=== PATIENT | male | born 1980 | race Hispanic/Latino ===

== ENCOUNTER 2018-08-21 17:54 | Inpatient (IN) | payer OTHER ==
[2018-08-21] MEDS ORDERED: NA CHLORIDE 0.9% 1,000 ML ONE (19:38)
[2018-08-21 19:44] LABS: Absolute Monocytes 1.5 K/uL (0.1-1.3); Absolute Neutrophil 13.6 K/uL (1.8-8.0); Basophils % 0.4 % (0-1.3); Eosinophils % 1.3 % (0-4.4); Hematocrit 42.4 % (39.6-49.0); Lymphocytes % 11.6 % (15.3-44.8); MPV 6.6 fL (7.6-11.3); Monocytes % 8.9 % (3.3-12.3); RBC Red Blood Cell Count 4.74 M/uL (4.33-5.43)
[2018-08-21 19:53] LABS: Protime INR 1.08
[2018-08-21 20:02] LABS: Albumin 3.2 g/dL (3.4-5.0); Bilirubin Direct 0.1 mg/dL (0-0.2); Bilirubin Total 0.4 mg/dL (0.2-1.0); Potassium 3.5 mmol/L (3.5-5.1); Protein, Total 7.8 g/dL (6.4-8.2)
--- NOTE | 2018-08-21 20:19 | ER ---
Nurse's Notes [facility] Name: Robin Richardson Jr Age: 38 yrs Sex: Male : 1980 Arrival Date: 08/21/2018 Time: 17:57 Bed 30 Private MD: Armin Johnson H Diagnosis: Abscess of anal and rectal regions Presentation: 08/21 18:37 Presenting complaint: Patient states: Hx of perianal abcess, began having pain in L ph buttocks on Tuesday, reports taking penicillin that he had left over from dental work, states, " It feels like it's gone down some but it still hurts." Denies N/V/D or drainage. Transition of care: patient was not received from another setting of care. Onset of symptoms was August 21, 2018. Risk Assessment: Do you want to hurt yourself or someone else? Patient reports no desire to harm self or others. Care prior to arrival: None. 18:37 Method Of Arrival: Ambulatory 18:37 Acuity: MYRNA 3 ph 22:10 Initial Sepsis Screen: Does the patient meet any 2 criteria? No. Patient's initial tl3 sepsis screen is negative. Does the patient have a suspected source of infection? No. Patient's initial sepsis screen is negative. Historical: - Allergies: 18:41 No Known Allergies; ph - PMHx: 18:41 None; ph - Immunization history:: Adult Immunizations up to date. - Social history:: Smoking status: unknown. - Ebola Screening: : No symptoms or risks identified at this time. Screenin:44 Abuse screen: Denies threats or abuse. Nutritional screening: No deficits noted. tl3 Tuberculosis screening: No symptoms or risk factors identified. Fall Risk None identified. Assessment: 18:44 General: Appears uncomfortable, well groomed, well developed, well nourished, Behavior tl3 is calm, cooperative, appropriate for age. Pain: Complains of pain in buttocks. Neuro: Level of Consciousness is awake, alert, obeys commands, Oriented to person, place, time, situation, Appropriate for age. Cardiovascular: Patient's skin is warm and dry. Respiratory: Airway is patent Respiratory effort is even, unlabored, Respiratory pattern is regular, symmetrical. GI: No signs and/or symptoms were reported involving the gastrointestinal system. : No signs and/or symptoms were reported regarding the genitourinary system. EENT: No signs and/or symptoms were reported regarding the EENT system. Derm: Wound noted buttocks Abscess located on buttocks. Derm: Abscess flared up on Tuesday. Musculoskeletal: 20:09 Reassessment: No changes from previously documented assessment. Patient and/or family tl3 updated on plan of care and expected duration. Pain level reassessed. Patient is alert, oriented x 3, equal unlabored respirations, skin warm/dry/pink. 20:32 Reassessment: Dr Rahman at bedside for admission assessment. tl3 21:21 Reassessment: Patient appears in no apparent distress at this time. No changes from tl3 previously documented assessment. Patient and/or family updated on plan of care and expected duration. Pain level reassessed. Patient is alert, oriented x 3, equal unlabored respirations, skin warm/dry/pink. awaiting room assignment. 22:04 Reassessment: pt assigned room 229, report called to GA Ford. tl3 Vital Signs: 18:40 BP 125 / 87; Pulse 123; Resp 22; Temp 100.5; Pulse Ox 98% on R/A; Weight 163.29 kg; ph Height 5 ft. 8 in. (172.72 cm); Pain 6/10; 20:09 BP 124 / 63; Pulse 83; Resp 18; Pulse Ox 98% on R/A; tl3 21:21 BP 114 / 66; Pulse 100; Resp 18; Pulse Ox 95% on R/A; tl3 22:00 BP 101 / 51 RA; Pulse 101; Resp 21 S; Pulse Ox 97% on R/A; rv 18:40 Body Mass Index 54.74 (163.29 kg, 172.72 cm) ph ED Course: 17:57 Patient arrived in ED. as 17:57 Armin Johnson DO is Private Physician. as 18:40 Triage completed. ph 18:41 Arm band placed on. ph 18:42 Lincoln Harper PA is PHCP. cp 18:42 Mitchell Chun MD is Attending Physician. cp 18:43 Rut Landry, [place] is Primary Nurse. tl3 18:44 Patient has correct armband on for positive identification. Placed in gown. Bed in low tl3 position. Call light in reach. Side rails up X 1. Pulse ox on. NIBP on. Warm blanket given. 18:44 No provider procedures requiring assistance completed. tl3 19:30 Inserted saline lock: 20 gauge in left antecubital area, using aseptic technique. Blood rv collected. 20:18 Gavin Rahman MD is Hospitalizing Provider. cp 20:42 Patient moved to UT. vm2 22:04 Patient admitted, IV remains in place. tl3 Administered Medications: 19:30 Drug: NS 0.9% 1000 ml Route: IV; Rate: 1 bolus; Site: left antecubital; rv 20:39 Follow up: IV Status: Completed infusion; IV Intake: 1000ml tl3 20:40 Drug: Tylenol 1000 mg Route: PO; tl3 21:54 Follow up: Response: No adverse reaction tl3 20:45 Drug: Zosyn 3.375 grams Route: IVPB; Infused Over: 60 mins; Site: left forearm; tl3 Delivery: Primary tubing; 21:55 Follow up: IV Status: Completed infusion; IV Intake: 100ml tl3 22:07 Not Given (sent up with pt to floor): vancoMYCIN 1 grams IVPB once over 2 hrs tl3 Intake: 20:39 IV: 1000ml; Total: 1000ml. tl3 21:55 IV: 100ml; Total: 1100ml. tl3 Outcome: 20:19 Decision to Hospitalize by Provider. cp 22:04 Admitted to Med/surg accompanied by tech, via wheelchair, on monitor, with chart, Other tl3 Vancomycin sent to floor for admistration Report called to GA Ford 22:04 Condition: stable 22:04 Instructed on the need for admit. 22:27 Patient left the ED. tl3 Signatures: Blanca Chan Patricia, RN RN ph Lincoln Harper, FESTUS PA cp Margarita Mac 2 Rut Landry RN RN tl3 Dax Silva RN RN rv Corrections: (The following items were deleted from the chart) 20:32 20:09 BP 133 / 88; Pulse 87bpm; Resp 18bpm; Pulse Ox 100% RA; tl3 tl3
--- NOTE | 2018-08-21 20:20 | EDPHYS ---
Physician Documentation [facility] Name: Robin Richardson Jr Age: 38 yrs Sex: Male : 1980 Arrival Date: 08/21/2018 Time: 17:57 Bed 30 Private MD: Armin Johnson H ED Physician Mitchell Chun HPI: 08/21 19:20 This 38 yrs old Male presents to ER via Ambulatory with complaints of Abscess. cp 19:20 The patient presents with an abscess of the rectum. Onset: The symptoms/episode cp began/occurred 2 day(s) ago. 19:20 Associated signs and symptoms: Pertinent positives: fever, swelling, Pertinent cp negatives: discharge, drainage, vomiting. Modifying factors: the symptoms are aggravated by walking, pressure. Historical: - Allergies: 18:41 No Known Allergies; ph - PMHx: 18:41 None; ph - Immunization history:: Adult Immunizations up to date. - Social history:: Smoking status: unknown. - Ebola Screening: : No symptoms or risks identified at this time. ROS: 19:25 Constitutional: Positive for fever, Negative for body aches, chills, poor PO intake. cp 19:25 Eyes: Negative for injury, pain, redness, and discharge. cp 19:25 Cardiovascular: Negative for chest pain. cp 19:25 Respiratory: Negative for cough, shortness of breath, wheezing. cp 19:25 Abdomen/GI: Positive for rectal pain, Negative for abdominal pain, nausea, vomiting, and diarrhea, black/tarry stool, rectal bleeding. 19:25 : Negative for urinary symptoms, testicular pain 19:25 Skin: Negative for rash. 19:25 Neuro: Negative for altered mental status, headache, weakness. 19:25 All other systems are negative. Exam: 19:35 Constitutional: The patient appears in no acute distress, alert, awake, cp non-diaphoretic, non-toxic, well developed, well nourished, obese. 19:35 Head/Face: Normocephalic, atraumatic. cp 19:35 Eyes: Periorbital structures: appear normal, Conjunctiva: normal, no exudate, no injection, Sclera: no appreciated abnormality, Lids and lashes: appear normal, bilaterally. 19:35 ENT: External ear(s): are unremarkable, Nose: is normal, Mouth: Lips: moist, Oral mucosa: moist, Posterior pharynx: Airway: no evidence of obstruction, patent. 19:35 Chest/axilla: Inspection: normal, Palpation: is normal, no crepitus, no tenderness. 19:35 Cardiovascular: Rate: tachycardic, Rhythm: regular. 19:35 Respiratory: the patient does not display signs of respiratory distress, Respirations: normal, no use of accessory muscles, no retractions, no splinting, no tachypnea, labored breathing, is not present, Breath sounds: are clear throughout, no decreased breath sounds, no stridor, no wheezing. 19:35 Abdomen/GI: Inspection: abdomen appears normal, Palpation: abdomen is soft and non-tender, in all quadrants. 19:35 Back: pain, is absent, ROM is normal. 19:35 : Rectal exam: moderate pain noted rectal face at approximate 7 o'clock position with induration and swelling. Vital Signs: 18:40 BP 125 / 87; Pulse 123; Resp 22; Temp 100.5; Pulse Ox 98% on R/A; Weight 163.29 kg; ph Height 5 ft. 8 in. (172.72 cm); Pain 6/10; 20:09 BP 124 / 63; Pulse 83; Resp 18; Pulse Ox 98% on R/A; tl3 21:21 BP 114 / 66; Pulse 100; Resp 18; Pulse Ox 95% on R/A; tl3 22:00 BP 101 / 51 RA; Pulse 101; Resp 21 S; Pulse Ox 97% on R/A; rv 18:40 Body Mass Index 54.74 (163.29 kg, 172.72 cm) ph MDM: 18:42 Patient medically screened. cp 20:05 Data reviewed: vital signs, nurses notes, lab test result(s). cp 20:05 Counseling: I had a detailed discussion with the patient and/or guardian regarding: the cp historical points, exam findings, and any diagnostic results supporting the discharge/admit diagnosis, lab results, the need for further work-up and treatment in the hospital. 20:05 Physician consultation: Gavin Rahman MD was contacted at 20:00, regarding admission, cp to the medical/surgical unit. patient's condition. 08/21 19:14 Order name: Basic Metabolic Panel; Complete Time: 20:03 cp 03/04 20:03 Interpretation: Normal except: GLUC 130; GFR 89. cp 03/04 19:14 Order name: CBC with Diff; Complete Time: 20:03 cp 03/04 20:04 Interpretation: Normal except: WBC 17.5; MPV 6.6; YESESNIA% 77.8; LYM% 11.6; NEUT A 13.6; cp MNA 1.5. 03/ 19:14 Order name: Creatinine for Radiology; Complete Time: 20:03 cp 03/04 19:14 Order name: Hepatic Function; Complete Time: 20:03 cp 03/04 20:04 Interpretation: Normal except: AST 9; ALB 3.2; GLOB 4.6; A/G 0.7. cp 03/04 19:14 Order name: PT-INR; Complete Time: 20:03 cp /04 19:14 Order name: Ptt, Activated; Complete Time: 20:03 cp /04 19:14 Order name: IV Saline Lock; Complete Time: 19:43 cp / 19:14 Order name: Labs collected and sent; Complete Time: 19:43 cp /04 20:23 Order name: Blood Culture Adult (2) rv 04 21:06 Order name: CT; Complete Time: 21:10 EDMS Administered Medications: 19:30 Drug: NS 0.9% 1000 ml Route: IV; Rate: 1 bolus; Site: left antecubital; rv 20:39 Follow up: IV Status: Completed infusion; IV Intake: 1000ml tl3 20:40 Drug: Tylenol 1000 mg Route: PO; tl3 21:54 Follow up: Response: No adverse reaction tl3 20:45 Drug: Zosyn 3.375 grams Route: IVPB; Infused Over: 60 mins; Site: left forearm; tl3 Delivery: Primary tubing; 21:55 Follow up: IV Status: Completed infusion; IV Intake: 100ml tl3 22:07 Not Given (sent up with pt to floor): vancoMYCIN 1 grams IVPB once over 2 hrs tl3 Disposition: 08/21/18 20:19 Hospitalization ordered by Gavin Rahman for Inpatient Admission. Preliminary diagnosis is Abscess of anal and rectal regions. - Bed requested for Telemetry/MedSurg (Inpatient). - Status is Inpatient Admission. tl3 - Condition is Stable. - Problem is new. - Symptoms have improved. UTI on Admission? No Addendum: 08/26/2018 03:03 Co-signature as Attending Physician, Mitchell Chun MD. g s Signatures: Dispatcher [employer] EDRI Luana Aguero ms, Patricia, RN RN ph Meredith, Lincoln, PA PA cp Mitchell Chun MD MD Rut Landry, [place] RN tl3 Dax Silva RN RN rv Corrections: (The following items were deleted from the chart) 08/21 20:04 20:03 Normal except: WBC 17.5; MPV 6.6; YESSENIA% 77.8; LYM% 11.6; NEUT A 13.6. cp cp 21:22 20:19 Hospitalization Ordered by Gavin Rahman MD for Inpatient Admission. Preliminary ms diagnosis is Abscess of anal and rectal regions. Bed requested for Telemetry/MedSurg (Inpatient). Status is Inpatient Admission. Condition is Stable. Problem is new. Symptoms have improved. UTI on Admission? No. cp 22:27 21:22 08/21/2018 20:19 Hospitalization Ordered by Gavin Rahman MD for Inpatient tl3 Admission. Preliminary diagnosis is Abscess of anal and rectal regions. Bed requested for Telemetry/MedSurg (Inpatient). Status is Inpatient Admission. Condition is Stable. Problem is new. Symptoms have improved. UTI on Admission? No. ms
[2018-08-21] MEDS ORDERED: ACETAMINOPHEN 500 MG TAB ONE (20:37)
[2018-08-21] MEDS ORDERED: PIPER/TAZO/NS 3.375gm 3.375 GM/100 ML BAG ONE (20:38)
--- NOTE | 2018-08-21 20:42 | P.HP ---
Certification for Inpatient Patient admitted to: Observation With expected LOS: <2 Midnights Practitioner: I am a practitioner with admitting privileges, knowledge of patient current condition, hospital course, and medical plan of care. Services: Services provided to patient in accordance with Admission requirements found in Title 42 Section 412.3 of the Code of Federal Regulations Patient History Date of Service: 08/21/18 Reason for admission: perirectal abscess History of Present Illness: Mr Richardson is a 38 years old male with history of obesity, previous episode of perirectal abscess 5 years ago, who start about 4 days ago with perianal area pain. He noticed an induration in this area. Since he had this problem in the past, he start taking penicillin tabs that had left from a recent dental procedure. He noticed that over the time, the induration reduced the size, but is dye tank tender. He denied blood, or pus coming out. He denied fever or chills, however in ER his temp was 100.5 F. Lab work shows WBC 17.5 K. Allergies No Known Allergies Allergy (Verified 04/26/14 11:36) Home Medications: Hydrocodone 7.5/APAP 325 [Grady 7.5/325 mg] 1 tab PO Q4HP PRN #20 tab 04/26/14 Smz./Tmp. [Bactrim Ds 800 MG/160 MG*] 1 tab PO BID #14 tab 04/26/14 - Past Medical/Surgical History Diabetic: No -: obesity -: perirectal abscess -: I&D perirectal abscess - Family History Family History: Reviewed- Non-Contributory - Family History mom -: Diabetes dad -: Heart disease, Diabetes - Social History Smoking Status: Former smoker Alcohol use: Yes CD- Drugs: No Caffeine use: Yes Place of Residence: Home Review of Systems 10-point ROS is otherwise unremarkable Physical Examination - Physical Exam General: Alert, In no apparent distress HEENT: Atraumatic, PERRLA, Mucous membr. moist/pink, EOMI, Sclerae nonicteric Neck: Supple, 2+ carotid pulse no bruit, No LAD, Without JVD or thyroid abnormality Respiratory: Clear to auscultation bilaterally, Normal air movement Cardiovascular: Regular rate/rhythm, Normal S1 S2 Gastrointestinal: Normal bowel sounds, No tenderness Musculoskeletal: No tenderness Integumentary: No rashes Neurological: Normal speech, Normal strength at 5/5 x4 extr, Normal tone, Normal affect Lymphatics: No axilla or inguinal lymphadenopathy Rectal: Induration (left lower perianal area.), Tenderness - Studies Laboratory Data (last 24 hrs) 08/21/18 19:30: PT 12.7 H, INR 1.08, APTT 32.3 08/21/18 19:30: Creatinine 0.97 08/21/18 19:30: WBC 17.5 H, Hgb 14.2, Hct 42.4, Plt Count 323 08/21/18 19:30: Sodium 140, Potassium 3.5, BUN 10, Creatinine 0.95, Glucose 130 H, Total Bilirubin 0.4, AST 9 L, ALT 21, Alkaline Phosphatase 75 Assessment and Plan - Problems (Diagnosis) (1) Obesity Current Visit: Yes Status: Acute Qualifiers: Obesity type: unspecified obesity type Obesity classification: unspecified obesity classification Serious obesity comorbidity presence: unspecified whether serious comorbidity present Qualified Code(s): E66.9 - Obesity, unspecified (2) Chelsie-rectal abscess Onset Date: 04/24/14 Current Visit: No Status: Acute (3) Rectal pain Onset Date: 04/24/14 Current Visit: No Status: Acute - Plan Will admit the patient due to a perirectal abscess. He is febrile and has leukocytosis. Will order CT pelvis to evaluate extention. Start empiric broad spectrum IV antibiotics, consult surgery team. - Advance Directives Does patient have a Living Will: No Does patient have a Durable POA for Healthcare: No - Code Status/Comfort Care Code Status Assessed: Yes Code Status: Full Code
--- NOTE | 2018-08-21 21:06 | RAD REPORT ---
EXAM DESCRIPTION: CT - Pelvis W/Cont - 08/21/2018 8:55 pm CLINICAL HISTORY: perirectal abscess Pain in the anal region. COMPARISON: No comparisons TECHNIQUE: All CT scans are performed using dose optimization technique as appropriate and may inclu de automated exposure control or mA/KV adjustment according to patient size. FINDINGS: A 4.6 x 3.4 cm left-sided perirectal abscess is identified. The skin and deeper tissues in the region appear mildly thickened and edematous. No evidence of communication of the abscess with the intrapelvic structures. No additional soft tissu e lesion. No pelvic free fluid or adenopathy. IMPRESSION: Left-sided perirectal abscess is present (4.6 x 3.5 cm).
[2018-08-21] MEDS ORDERED: ACETAMINOPHEN 500 MG TAB PO PRN (22:13)
[2018-08-21] MEDS ORDERED: ONDANSETRON 4 MG/2 ML VIAL IV PRN (22:13)
[2018-08-21] MEDS ORDERED: KETOROLAC 30 MG/ML INJ IV PRN (22:13)
[2018-08-21] MEDS ORDERED: NA CHLORIDE 0.9% 250 ML ONE (22:20)
[2018-08-21] MEDS ORDERED: VANCOMYCIN 1 GM/VIAL ONE (22:20)
[2018-08-21 22:25] VITALS: BMI 54.8
[2018-08-21] MEDS: NA CHLORIDE 0.9% 1,000 ML IV SCH (22:44)
[2018-08-21] MEDS ORDERED: VANCOMYCIN 1 GM in NA CHLORIDE 0.9% 500 ML IVPB ONE (23:00)
[2018-08-22] MEDS ORDERED: NA CHLORIDE 0.9% 500 ML ONE (01:29)
[2018-08-22] MEDS ORDERED: VANCOMYCIN 1 GM/VIAL ONE (01:29)
[2018-08-22] MEDS ORDERED: PIPER/TAZO/NS 3.375gm 3.375 GM/100 ML BAG IVPB SCH (03:00)
[2018-08-22] MEDS ORDERED: PIPER/TAZO/NS 3.375gm 3.375 GM/100 ML BAG ONE (03:41)
[2018-08-22] MEDS: PIPER/TAZO/NS 3.375gm 3.375 GM/100 ML BAG IVPB SCH ×2 (08:57→17:36)
[2018-08-22] MEDS: NA CHLORIDE 0.9% 1,000 ML IV SCH ×2 (08:58→17:36)
[2018-08-22] MEDS ORDERED: VANCOMYCIN 1.25 GM in NA CHLORIDE 0.9% 500 ML IVPB SCH (09:00)
[2018-08-22] MEDS ORDERED: VANCOMYCIN 2 GM in NA CHLORIDE 0.9% 500 ML IVPB SCH (10:00)
[2018-08-22] MEDS ORDERED: ONDANSETRON 4 MG/2 ML VIAL ONE ×2 (10:01→13:54)
[2018-08-22] MEDS ORDERED: PROPOFOL 200 MG/20 ML VIAL IV ONE ×2 (10:01→10:52)
[2018-08-22] MEDS ORDERED: LIDOCAINE 2% MPF 5 ML VIAL ONE (10:01)
[2018-08-22] MEDS ORDERED: FENTANYL CITR 100 MCG/2 ML ONE (10:01)
[2018-08-22] MEDS ORDERED: MIDAZOLAM HCL 2 MG/2 ML INJ ONE (10:01)
[2018-08-22] MEDS: BUPIVACAINE 0.5% PF 10 ML VIAL ONE ×2 (10:10→10:59)
--- NOTE | 2018-08-22 10:55 | CON ---
Date of Consultation: 08/22/2018 Diagnosis: Perirectal abscess. History Of Present Illness: This is a case of a 38-year-old patient, who comes to us with perirectal /perianal tenderness. About 4 days ago, it started in that area. He used to have perirectal abscess before in the past that required I and D about 5 years ago. He feels almost the same. The patient was admitted to the hospital with IV antibiotics, and then a surgical consult was obtained. He denie s any trauma, any dysuria, hematochezia, or melena. He denies any recent traveling out of the [facility]. He denies any family member sick at home. Review of Systems: Ten points otherwise unremarkable. Family History: Diabetes and heart disease. Medications: Hydrocodone and Bactrim. Allergies: NONE. Past Surgical History: I and D for perirectal abscess. Social History: He does not smoke. He does not drink alcohol. Physical Examination: General: The patient is awake and alert. He is morbidly obese. HEENT: Pupils are equal and reactive, anicteric. Neck: Supple. Chest: Clear. Heart: S1, S2. Abdomen: Soft and depressible. No guarding or rebound. Genitalia: No masses palpated in the perir ectal area and in the perineal region. Just anterior to the anus, the patient has an induration and tenderness with erythema present. The area of the scrotum does not seem to be involved at least in p hysical exam. Extremities: Good capillary refill. Laboratory Data: Blood work shows WBC count of 17.5, INR is 1.08. Glucose 130. CAT scan of the pel vis interpreted by Dr. Tomlinson, he has perirectal abscess. Assessment: This is a case of a 38-year-old patient with a perianal/perirectal tenderness diagnosed with perirectal abscess. Examination under anesthesia, anoscopy, rigid proctoscopy, incision and dra weathers of perianal abscess were fully explained to the patient, which include, but are not limited to infection, bleeding, damage to adjacent structures, anesthesia complication, anal stricture and incon tinence, bowel perforation, MT, and even . He also understands this may not relieve any symptom s. He might need more than one surgical intervention. He understands he will require wound care. H e was also advised the importance of losing weight. EPI/TUTU Voice ID: [id number] Report ID: [id number]
--- NOTE | 2018-08-22 11:29 | P.BOP ---
Preoperative diagnosis: perirectal abscess, morbid obesity Postoperative diagnosis: same Primary procedure: 1. EUA, 2. Anoscopy, 3. Rigid proctoscopy Secondary procedure: 4. incision and drainage of perirectal abscess Estimated blood loss: <10 Specimen: pus Findings: as above Anesthesia: General Complications: None Drain(s): Other (ana lilia 06/23") Transferred to: Recovery Room Condition: Good
[2018-08-22] MEDS: FENTANYL CITR 100 MCG/2 ML ONE ×2 (11:31→11:44)
[2018-08-22] MEDS: HYDROCODONE/APAP 7.5/325 MG TAB PO PRN (15:12)
--- NOTE | 2018-08-22 18:07 | PN ---
Date of Progress Note: 08/22/2018 Subjective: The patient seen and examined, chart reviewed and case discussed with RN. The patient o verall states that his pain was better. He stated that his abscess initially was golf ball size, how ever, has improved. Medications: List reviewed. Objective: Vital signs: Temperature 97.3, heart rate 87, blood pressure 138/76, respirations 20, O2 93% on room air. General: Awake, alert, oriented x3. Morbidly obese male. BMI 54.8. CV: S1, S2. Regular rate and rhythm. Peripheral pulses present. Respiratory: Moving air well bilaterally. No wheezing or stridor. Gastrointestinal: Abdomen is soft, nontender, nondistended. Positive bowel sounds. Extremities: No clubbing, cyanosis, or edema. Neuro: cranial nerves 2 through 12 intact grossly. No focal neurological deficit. SKIN: The patient has a perirectal abscess on the left with some induration and tenderness to palpat ion. No drainage. Laboratory Data: Pending CT scan of the pelvis shows left-sided perirectal abscess, 4 x 3 cm. Assessment: A 38-year-old male with: 1.Perirectal abscess, status post incision and drainage by Dr. Chan. Continue antibiotics. Dis continue vancomycin. Follow up on wound cultures. 2.Rectal pain secondary to above. 3.Morbid obesity. Body mass index 54.8. 4.Hyperglycemia without diagnosis of diabetes. We will check hemoglobin A1c to rule out diabetes. The patient is high risk. Plan: Continue antibiotics. Follow up on cultures. Likely discharge in the next 24-48 hours depend ing on clinical response. /TUTU Voice ID: [id number] Report ID: [id number]
[2018-08-22] MEDS: VANCOMYCIN 2 GM in NA CHLORIDE 0.9% 500 ML IVPB SCH (21:48)
--- NOTE | 2018-08-22 22:31 | OP ---
Date of Procedure: 08/22/2018 Surgeon: Remi Chan MD Preoperative Diagnoses: Perirectal abscess and morbid obesity. Postoperative Diagnoses: Perirectal abscess and morbid obesity. Procedure: Examination under anesthesia, anoscopy, rigid proctoscopy, incision and drainage of perir ectal abscess. Estimated Blood Loss: Less than 10 cc. Specimen: Pus. Findings: A perirectal abscess. Cultures were obtained. Complications: None. Packing: Nu-Gauze quarter of an inch. Indications: This is the case of a 38-year-old patient, morbidly obese, with a perirectal abscess di agnosed on pelvic CT with tenderness. The patient fully explained the benefits, alternatives, and ri sks of EUA, anoscopy, proctoscopy, incision and drainage of perirectal abscess, which include, but no t limited to infection, bleeding, damage to adjacent structures, anesthesia complication, anal strict ure and incontinence, bowel perforation, OR, and even . He also understands this may not reliev e the symptoms. He might need more than one surgical intervention. He understood and signed a conse nt. The patient understands he will require to do wound care. Description Of Procedure: The patient was brought to the operating room and placed in supine positio n. Anesthesia was done without complication. Then, the patient was placed in lithotomy position wit h proper protection. A time-out was called. Rectal examination was done. We identified the bulging area on the left perirectal region near the anus. Rigid proctoscopy was done all the way about 15 c m. A large amount of stools present, so physical exam was difficult and limited that we did not see any obvious mass in the rectum connecting to this abscess. We did not see any obvious fistula neithe r. Although once again, may be obscured by the amount of stool present. After that, an 18-gauge nee dle was placed to identify the area. The pus was aspirated. Position confirmed. The culture was ob tained. An incision was made to cover the skin near the anal verge. The surrounding structures were dissected carefully with a hemostat. The cavity was deep. It was encountered. The pus was then ca me out under pressure, but we were able to introducer finger to that area and make sure there is no o ther loculations present. The abscess was irrigated. Hemostasis obtained and the area was packed wi th iodoform quarter of an inch. The patient tolerated the procedure well. The dressings placed over the area. The patient was sent to recovery in stable condition. FORTINO Voice ID: [id number] Report ID: [id number]
[2018-08-23] MEDS: PIPER/TAZO/NS 3.375gm 3.375 GM/100 ML BAG IVPB SCH ×2 (00:57→08:21)
[2018-08-23] MEDS: HYDROCODONE/APAP 7.5/325 MG TAB PO PRN ×2 (03:15→16:40)
[2018-08-23] MEDS: NA CHLORIDE 0.9% 1,000 ML IV SCH ×3 (04:13→23:57)
[2018-08-23] MEDS: VANCOMYCIN 2 GM in NA CHLORIDE 0.9% 500 ML IVPB SCH ×2 (08:31→21:00)
[2018-08-23 12:01] LABS: Absolute Lymphocytes (CBC) 1.6 K/uL (0.7-4.9); Absolute Monocytes 1.4 K/uL (0.1-1.3); Absolute Neutrophil 8.9 K/uL (1.8-8.0); Basophils % 0.5 % (0-1.3); Eosinophils % 2.3 % (0-4.4); Hematocrit 41.1 % (39.6-49.0); Lymphocytes % 13.3 % (15.3-44.8); MPV 6.6 fL (7.6-11.3); Monocytes % 11.7 % (3.3-12.3); RBC Red Blood Cell Count 4.58 M/uL (4.33-5.43)
[2018-08-23 12:47] LABS: Uric Acid 7.8 mg/dL (3.5-7.2)
[2018-08-23 14:07] LABS: Urine Appearance CLEAR; Urine Bilirubin NEGATIVE (NEG); Urine Blood NEGATIVE (NEG); Urine Color YELLOW; Urine Glucose NEGATIVE (NEG); Urine Microscopic Reflex NO UMIC; Urine Protein NEGATIVE (NEG); Urine Specific Gravity <=1.005 (1.005-1.030); Urine pH 5.5 (5.0-7.0)
[2018-08-23 14:32] LABS: Barbiturates NEGATIVE (NEGATIVE); Benzodiazepines NEGATIVE (NEGATIVE); Cocaine NEGATIVE (NEGATIVE); METHAMPHETAM NEGATIVE (NEGATIVE); Methadone NEGATIVE (NEGATIVE); Opiates NEGATIVE (NEGATIVE); Phencyclidine NEGATIVE (NEGATIVE); THC Cannibis NEGATIVE (NEGATIVE)
[2018-08-23] MEDS ORDERED: CEFEPIME 2 GM in NA CHLORIDE 0.9% 100 ML IV SCH (15:00)
--- NOTE | 2018-08-23 16:03 | RAD REPORT ---
EXAM DESCRIPTION: US - Renal Ultrasound-Complete - 08/23/2018 3:26 pm CLINICAL HISTORY: . Abnormal renal function/abdominal pain COMPARISON: None. FINDINGS: Examination is somewhat limited secondary to body habitus The right kidney measures 11 cm with a normal echotexture. The left kidney measures 11 cm with a normal echotexture. Hydronephrosis is not seen. No gross abnormality of bladder noted IMPRESSION: Unremarkable renal ultrasound.
--- NOTE | 2018-08-23 17:35 | PN ---
Date of Progress Note: 08/23/2018 Subjective: The patient is seen and examined. Chart reviewed and case discussed with RN and Dr. Nadira mata as well as Dr. Flores. The patient states that his pain is significantly better. is espino pposed to be coming in tonight to observe and have teaching for wound care. The patient is unable to do wound care himself due to the location of the abscess and wound, may need to be set up with [facility], not homebound unfortunately and does not qualify for home health. Medications: List reviewed. Physical Examination: Vital Signs: Temperature 97.5, heart rate 87, blood pressure 119/78, respirations 20, O2 saturation 96% on room air. General: Awake, alert, oriented x3. Morbidly obese, ill-appearing male. CV: S1 and S2. Regular rate and rhythm. Peripheral pulses present. Respiratory: Moving air well bilaterally. No wheezing or stridor. Gastrointestinal: Abdomen is soft, nontender, nondistended. Positive bowel sounds. Skin: Perirectal abscess with packing and gauze. No signs of drainage. Extremities: No clubbing, cyanosis, or edema. Neurologic: Nonfocal. Laboratory Data: WBC 12.3, H and H 13.6 and 41.1, platelets 334. INR 1.08, creatinine 2.04, uric ac id 7.8. CK is 33. Blood cultures are pending. Wound culture preliminary results showing 3+ gram-ne gative rods. Blood cultures are showing gram-positive cocci in clusters. Assessment And Plan: A 38-year-old male with: 1.Perirectal abscess status post incision and drainage by Dr. Chan. Continue IV antibiotics. W e will discontinue Zosyn and switch to cefepime due to elevated kidney function. The patient's blood cultures are now showing gram-positive cocci. Therefore, we will reintroduce vancomycin. Wound cul tures are showing gram-negative rods. 2.Prediabetes. Hemoglobin A1c is 6%. The patient has been counseled. 3.Acute kidney injury, likely due to contrast-induced nephropathy. Creatinine is elevated at 2.04. Baseline was normal. We will continue to monitor. Avoid NSAIDs. Appreciate Nephrology input. Dr. Flores was consulted earlier today. 4.Morbid obesity, BMI 54.8. Plan: We will have social work job titles set up wound care [facility]. We will have [place] have wound care teaching. Follow up on culture results. Likely discharge in the next 24-48 hour s depending on clinical response. /TUTU Voice ID: [id number] Report ID: [id number]
--- NOTE | 2018-08-23 17:44 | PN ---
Date of Progress Note: 08/23/2018 Subjective: Status post perirectal abscess drainage. Patient is doing well. No nausea. No vomitin g. Denies shortness of breath or chest pain. Objective: Chest: Clear. Abdomen: Soft and depressible. Back area: Intact surgical site. Laboratory Studies: WBC count came down from 17 to 12.3. Culture still pending. Assessment: Perirectal abscess status post incision and drainage. Plan: The patient will continue on antibiotics at least for next 7 days. Packing has to be done. H e cannot do it, it is not possible. I talked to his mother and she does not think he is able to do s o. So, I am recommending to really use home health agencies of his predilection. He says his m ight do so, but at this moment, it is hard to just get that may need some supervised skill s. My recommendation is to really accept a home health agency. feels comfortable and his knows how to do so, then he can switch and somehow tell that to the home health agencies. From the surgical standpoint, we are going to see him in 1 week in my office. EPI/TUTU Voice ID: [id number] Report ID: [id number]
--- NOTE | 2018-08-24 03:57 | CON ---
Date of Consultation: 08/23/2018 Reason For Consultation: Elevated BUN and creatinine. History Of Present Illness: This is a pleasant 38-year-old gentleman with no significant medical his tory except previous buttock abscess, status post I and D, treated, recovered. The patient came with buttock pain, started few days ago, visited the ER, treated with penicillin. Then, his symptoms did not improve. For that reason, reported to the hospital again, found to have abscess with leukocytos is. For that reason, the patient was admitted. On admission to the hospital, his kidney function co mpletely was within normal limit. The patient during the workup received a CT with contrast. The patient admits that he was taking ibuprofen 3 tablets daily, last time 2 weeks ago. The patient also was placed on antibiotic; according to him, it is penicillin. Past Medical History: Buttock abscess. Allergies: NO KNOWN DRUG ALLERGIES. Home Medication: Include penicillin, questionable of Bactrim, hydrocodone. Past Surgical History: Include perirectal abscess, status post I and D surgery for it. Family History: Positive for hypertension. Review of Systems: Head and neck: No red eye. No ear pain. GI: No nausea, no vomiting. : No polyuria, no dysuria, no hematuria. Cocktail Server: Not applicable. Respiratory: No shortness of breath. Cardiovascular: No chest pain. Endocrine: No polydipsia. Skin: No rash. Neuro: No neuropathy. Musculoskeletal: Has buttock pain. Physical Examination: Vital Signs: When I saw the patient, blood pressure 141/84, pulse of 82. Afebrile. Chest: Clear to auscultation. Heart: S1, S2 regular. Abdomen: Soft, nontender. Extremities: Trace edema. Laboratory Data: WBC 12.3, H and H 13.6/41.1, platelets 344, eosinophil of 2.3%, absolute count of 3 00. Sodium 140, potassium 3.5, bicarb 30, BUN 10, creatinine 0.9, GFR of 89, lactic acid 1.6, uric a ayo 7.8, calcium 8.6. Assessment And Plan: Acute kidney injury, possible secondary to contrast induced nephropathy, nonoli guric. No hyperkalemia. No acidosis. 1.I am going to go ahead and send for a full workup to rule out any autoimmune disease. 2.We will do ultrasound to rule out any obstructive, even though that the CT that was done was negat dawson. We will start the patient on hydration, and we will monitor. 3.Buttock abscess secondary to body habit, possible vancomycin toxicity. We will adjust vancomycin dose. We will hold the vancomycin for the time being. TODD Voice ID: [id number] Report ID: [id number]
[2018-08-24 06:55] LABS: Absolute Lymphocytes (CBC) 1.6 K/uL (0.7-4.9); Absolute Monocytes 1.3 K/uL (0.1-1.3); Absolute Neutrophil 10.7 K/uL (1.8-8.0); Basophils % 0.4 % (0-1.3); Eosinophils % 2.6 % (0-4.4); Hematocrit 41.3 % (39.6-49.0); Lymphocytes % 11.4 % (15.3-44.8); RBC Red Blood Cell Count 4.62 M/uL (4.33-5.43)
[2018-08-24 07:13] LABS: Bilirubin Total 0.6 mg/dL (0.2-1.0); Phosphorus 4.2 mg/dL (2.5-4.9); Potassium 3.8 mmol/L (3.5-5.1); Protein, Total 7.5 g/dL (6.4-8.2)
[2018-08-24] MEDS: VANCOMYCIN 2 GM in NA CHLORIDE 0.9% 500 ML IVPB SCH (08:46)
[2018-08-24 09:19] LABS: Rheumatoid Factor NEG (NEG)
[2018-08-24] MEDS: NA CHLORIDE 0.9% 1,000 ML IV SCH ×3 (09:37→23:00)
[2018-08-24] MEDS ORDERED: VANCOMYCIN 2 GM in NA CHLORIDE 0.9% 500 ML IVPB SCH (12:00)
[2018-08-24] MEDS: CEFEPIME/SWI 2gm 2 GM/20 ML SYR IVP SCH (14:57)
[2018-08-24] MEDS: PANTOPRAZOLE 40MG TABLET PO SCH (18:18)
--- NOTE | 2018-08-24 18:36 | PN ---
Date of Progress Note: 08/24/2018 History: The patient is seen and examined. Chart reviewed and case discussed with Dr. Jean. T he patient states his pain is significantly better. is at the bedside. Treatment plan explaine d. All questions answered. Medications: List reviewed. Physical Examination: Vital Signs: Temperature 97.3, heart rate 88, blood pressure 147/78, respirations 16, O2 93% on room air. General: Awake, alert, oriented x3. Morbidly obese male. Difficult for him to get up and ambulate. CV: S1, S2. Regular rate and rhythm. Peripheral pulses present. Respiratory: Moving air well bilaterally. No wheezing. Gastrointestinal: Abdomen is soft, nontender, nondistended. Positive bowel sounds. Extremities: No clubbing, cyanosis, or edema. Skin: Perirectal abscess is packed with gauze covering the wound. No significant drainage. Neurologic: Nonfocal. Laboratory Data: Sodium 143, potassium 3.8, chloride 107, CO2 30, BUN 17, creatinine 2.01, glucose 1 07, calcium 8.3. WBC 14, H and H 13.7 and 41.3, platelets 340, neutrophils 76%. Blood cultures grow ing coagulase-negative Staph, likely contaminant, 4/4 bottles, which is unusual. Wound cultures grow ing out E. coli, which was sensitive except to ampicillin and Unasyn. Anaerobic cultures are pending . Renal ultrasound unremarkable, shows normal kidneys, no hydronephrosis. Assessment And Plan: A 38-year-old male with: 1.Perirectal abscess status post incision and drainage by Dr. Chan. We will continue IV antibio tics. Blood cultures showing coagulase-negative Staph, 4/4 bottles, which is unusual, however, this is a skin contaminant, likely technique on collection was incorrect. We will discontinue vancomycin. Continue on cefepime due to Escherichia coli growing from wound cultures. 2.Morbid obesity, BMI 56. 3.Hypocalcemia. 4.Prediabetes. Hemoglobin A1c of 6%. 5.Acute kidney injury secondary to contrast induced nephropathy. Possible acute tubular necrosis. We will continue to avoid NSAIDs. Creatinine function has stabilized and slightly trending down. We will continue to monitor. Continue IV fluids. Avoid NSAIDs and nephrotoxins. The patient will nee d home health and wound care at home. The patient has a very deep wound. Will need good wound care to avoid sepsis and recurrent abscess and infection. The patient has super morbid obesity with diffi culty ambulating. Will likely be homebound for the duration of this abscess. We will discuss jodythe r with Case Management. RUDY Voice ID: [id number] Report ID: [id number]
[2018-08-24] MEDS ORDERED: NA CHLORIDE 0.9% 1,000 ML IV SCH (22:00)
--- NOTE | 2018-08-24 23:08 | P.PN ---
Subjective Date of Service: 08/24/18 Chief Complaint: perirectal abscess Subjective: No new changes Cr stable now likely ATN/AIN from vanco and zosyn f/u serology will reduce IVF rate Physical Examination - Vital Signs Temperature: 98.1 F Blood Pressure: 133/75 Pulse: 87 Respirations: 20 Pulse Ox (%): 97 - Physical Exam General: In no apparent distress, Oriented x3 HEENT: Atraumatic Neck: Supple, Without JVD or thyroid abnormality Respiratory: Clear to auscultation bilaterally, Normal air movement Cardiovascular: No edema, Regular rate/rhythm, No gallops, No rubs, No murmurs Gastrointestinal: Normal bowel sounds, Soft and benign Integumentary: No rashes - Studies Microbiology Data (last 24 hrs): 08/22/18 11:00 Wound - Other Gram Stain - Final 08/22/18 11:00 Wound - Other Culture & Sensitivity - Final Escherichia Coli 08/22/18 11:00 Wound - Other Gram Stain - Final Assessment And Plan - Current Problems (Diagnosis) (1) MAYTE (acute kidney injury) Current Visit: Yes Status: Acute - Plan MAYTE likely ATN/AIN from Vanco and zosyn vs contrast induced nephropathy agree to hold vanco US : no hydro no skin rash or eosinophilia Ua: no prot or bld f/u serology gluteal abscess S/p I&D cont cefepime for now
[2018-08-25 04:43] LABS: Absolute Lymphocytes (CBC) 1.9 K/uL (0.7-4.9); Absolute Monocytes 1.2 K/uL (0.1-1.3); Absolute Neutrophil 9.6 K/uL (1.8-8.0); Basophils % 0.6 % (0-1.3); Hematocrit 38.5 % (39.6-49.0); Lymphocytes % 14.4 % (15.3-44.8); MPV 6.5 fL (7.6-11.3); Monocytes % 8.9 % (3.3-12.3); RBC Red Blood Cell Count 4.33 M/uL (4.33-5.43)
[2018-08-25 05:01] LABS: Albumin 2.6 g/dL (3.4-5.0); Bilirubin Total 0.5 mg/dL (0.2-1.0); Potassium 3.9 mmol/L (3.5-5.1); Protein, Total 6.7 g/dL (6.4-8.2)
[2018-08-25 05:42] VITALS: BP 128/72; TEMP 98.6
[2018-08-25] MEDS: NA CHLORIDE 0.9% 1,000 ML IV SCH (06:17)
[2018-08-25] MEDS: HYDROCODONE/APAP 7.5/325 MG TAB PO PRN (09:17)
[2018-08-25] MEDS: PANTOPRAZOLE 40MG TABLET PO SCH (09:17)
[2018-08-25 11:21] VITALS: O2SAT 96
--- NOTE | 2018-08-25 12:25 | P.PN ---
Subjective Date of Service: 08/25/18 Chief Complaint: perirectal abscess Subjective: Improving Cr improved to 1.8 likely ATN/AIN from vanco and zosyn can be discharged from nephrology point of view F/u with nephrology clinic in 1-2 wk Physical Examination - Vital Signs Temperature: 98.6 F Blood Pressure: 128/72 Pulse: 81 Respirations: 18 Pulse Ox (%): 96 - Physical Exam General: In no apparent distress, Oriented x3, Obese HEENT: Atraumatic Neck: Supple, Without JVD or thyroid abnormality Respiratory: Clear to auscultation bilaterally, Normal air movement Cardiovascular: No edema, Normal pulses, Regular rate/rhythm, Normal S1 S2, No rubs, No murmurs Gastrointestinal: Normal bowel sounds, Soft and benign - Studies Microbiology Data (last 24 hrs): 08/22/18 11:00 Wound - Other Gram Stain - Final 08/22/18 11:00 Wound - Other Culture & Sensitivity - Final Escherichia Coli 08/22/18 11:00 Wound - Other Gram Stain - Final Assessment And Plan - Current Problems (Diagnosis) (1) MAYTE (acute kidney injury) Current Visit: Yes Status: Acute - Plan MAYTE likely ATN/AIN from Vanco and zosyn vs contrast induced nephropathy agree to hold vanco US : no hydro no skin rash or eosinophilia Ua: no prot or bld f/u serology gluteal abscess S/p I&D Cont abx and wound care cleared for discharge from nephrology point of view
[2018-08-25] MEDS: CEFEPIME/SWI 2gm 2 GM/20 ML SYR IVP SCH (13:18)
--- NOTE | 2018-08-26 14:50 | DS ---
Date of Discharge: 08/25/2018 Consultants: Dr. Chan, General Surgery. Dr. Flores and Dr. Jean with Nephrology. Procedures: On 08/22/2018, examination under anesthesia, endoscopy, rigid proctoscopy, incision and drainage of perirectal abscess. Admitting Diagnoses: 1.Perirectal abscess. 2.Morbid obesity. 3.Rectal pain. Discharge Diagnoses: 1.Perirectal abscess status post incision and drainage. Culture showing Escherichia coli. 2.Prediabetes. Hemoglobin A1c 6%. Counseled. 3.Acute kidney injury, likely due to acute tubular necrosis and contrast-induced nephropathy, improv ing. 4.Morbid obesity. BMI 54.8. Hospital Course: The patient is a 38-year-old male who comes in with perirectal abscess, failed outp atient treatment with penicillin. The patient had a fever, elevated white count. The patient was st arted on IV antibiotics. His blood pressures initially showed gram-positive cocci in 4/4 bottles. T herefore, he was covered with vancomycin. Subsequently, this turned out to be coagulase-negative Sta ph, and vancomycin was discontinued. The patient also received contrast in the ER with imaging [facility] es. The patient did develop some acute kidney injury, however, was treated with IV fluids, hydration , and has been improving. The patient's blood cultures as mentioned above showed contaminant. His w ound culture, however, showed E. coli. The patient was seen by Dr. Chan, who performed the I and D. The patient felt significantly better. His white count improved. He remained afebrile after th e procedure. The patient did not have any signs of sepsis. The patient was then set up with home he alth care for wound care and was then discharged. Followup: Follow up with primary care physician in 1 week. Follow up with surgeon, Dr. Chan in 1 week. Follow up with forest officer, Dr. Flores, in 2 weeks. Return to ER for worsening condition . Wound care instructions per surgeon. Have repeat BMP in 1 week. Diet: Diabetic. The patient was counseled extensively on his prediabetic status. He understands th e risks and was counseled regarding diet and exercise regimen. Activity: As tolerated. Medications: As per medication reconciliation list. Physical Examination: General: Awake, alert, oriented x3. No acute distress. Morbidly obese male. CV: S1, S2. No murmurs. Respiratory: Moving air well bilaterally. Abdomen: Soft, nontender, nondistended. Positive bowel sounds. Extremities: No clubbing, cyanosis, edema. Neurologic: Nonfocal. Total time spent discharging the patient was 38 minutes. /TUTU Voice ID: [id number] Report ID: [id number]
[2018-08-27 15:50] LABS: HIV 1/2 Antibody Diff Not indicated.; HIV AG/AB 4TH GEN Non-reactive (Non-reactive)
[2018-08-27 16:52] LABS: Hepatitis C Virus RNA (PCR)log <1.18 log IU/mL
[2018-08-29 13:09] LABS: HBsAG Nonreactive (Nonreactive)
[2018-08-30 10:27] LABS: P-ANCA Anti-Myeloperoxidase Ab <1.0 AI (<1.0)
== END 2018-08-25 13:50 | disposition home health service (06) | DRG 344 ==
LOC: ER 17:54 → ERHOLD 20:35 → 2ND 22:05 → OBSVTOIN 08-22 14:08
PROVIDERS: ADMIT Internal Medicine; ATTEND Family Medicine
PROC: 0DJD8ZZ Inspection of Lower Intestinal Tract, Via Natural or Artificial Opening Endoscopic (ICD-10-PCS; 2018-08-22)
PROC: 0D9P8ZX Drainage of Rectum, Via Natural or Artificial Opening Endoscopic, Diagnostic (ICD-10-PCS; 2018-08-22)
PROC: 0D9P0ZZ Drainage of Rectum, Open Approach (ICD-10-PCS; principal; 2018-08-22 10:00)
DX: K61.2 Anorectal abscess (principal); N17.0 Acute kidney failure with tubular necrosis; Z68.43 Body mass index [BMI] 50.0-59.9, adult; B96.20 Unspecified Escherichia coli [E. coli] as the cause of diseases classified elsewhere; R73.03 Prediabetes; N14.1 Nephropathy induced by other drugs, medicaments and biological substances; E66.01 Morbid (severe) obesity due to excess calories; Z87.891 Personal history of nicotine dependence; R73.9 Hyperglycemia, unspecified; E83.51 Hypocalcemia; T36.8X5A Adverse effect of other systemic antibiotics, initial encounter; T36.0X5A Adverse effect of penicillins, initial encounter; Y92.230 Patient room in hospital as the place of occurrence of the external cause
CPT/HCPCS: 36415; 72193; 76770; 80048; 80053; 80069; 80076; 80202; 80307; 81003; 82550; 82565; 82570; 83036; 83605; 84156; 84550; 85025; 85610; 85730; 86021; 86038; 86160; 86225; 86317; 86430; 86704; 86706; 87040; 87070; 87075; 87077; 87185; 87186; 87205; 87340; 87389; 87522; 96361; 96365; 99285; G0378; J0692; J2250; J2405; J2543; J2704; J3010; J7030

== ENCOUNTER 2020-02-01 08:54 | Emergency (ER) | payer BC, OTHER ==
[2020-02-01] MEDS ORDERED: SMZ./TMP. 800/160 MG TABLET ONE (09:35)
--- NOTE | 2020-02-01 10:40 | EDPHYS ---
Physician Documentation [facility] Name: Robin Richardson Jr Age: 39 yrs Sex: Male : 1980 Arrival Date: 02/01/2020 Time: 08:56 Bed 17 Private MD: Armin Johnson H ED Physician Rodrick Gonsales HPI: 01/31 09:33 This 39 yrs old Male presents to ER via Ambulatory with complaints of kb Infection. 09:33 discomfort to perineum when sitting. Onset: The symptoms/episode began/occurred 2 kb day(s) ago. Possible cause(s): possible infection beginning. Associated signs and symptoms: The patient has no apparent associated signs or symptoms. Modifying factors: the symptoms are alleviated by nothing, the symptoms are aggravated by sitting. Severity of symptoms: At their worst the symptoms were mild, in the emergency department the symptoms are unchanged. The patient has experienced similar episodes in the past. The patient has not recently seen a physician. 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 States Dr Chan told him to get antibiotics as soon as possible when he starts to feel the pain because it could come back and if he let it go too long he would have to have it drained in surgery again. States he had felt the pain return since then and Dr Johnson called him in some Bactrim DS that worked. States Dr Johnson's office is closed today so his only other option was to come here to get antibiotics. . Historical: - Allergies: 09:15 No Known Allergies; hb - PMHx: 09:15 None; hb - Immunization history:: Adult Immunizations up to date. - Social history:: Smoking status: Patient reports the use of cigarette tobacco products, smokes one-half pack cigarettes per day. ROS: 09:29 Constitutional: Negative for fever, chills, and weight loss, Cardiovascular: Negative kb for chest pain, palpitations, and edema, Respiratory: Negative for shortness of breath, cough, wheezing, and pleuritic chest pain, Abdomen/GI: Negative for abdominal pain, nausea, vomiting, diarrhea, and constipation, MS/Extremity: Negative for injury and deformity, Skin: Negative for injury, rash, and discoloration, Neuro: Negative for headache, weakness, numbness, tingling, and seizure. 09:29 : Positive for "discomfort" for perineum when sitting. Exam: 09:31 Constitutional: This is a well developed, well nourished patient who is awake, alert, kb and in no acute distress. Head/Face: Normocephalic, atraumatic. Chest/axilla: Normal chest wall appearance and motion. Nontender with no deformity. No lesions are appreciated. Cardiovascular: Regular rate and rhythm with a normal S1 and S2. No gallops, murmurs, or rubs. Normal PMI, no JVD. No pulse deficits. Respiratory: Lungs have equal breath sounds bilaterally, clear to auscultation and percussion. No rales, rhonchi or wheezes noted. No increased work of breathing, no retractions or nasal flaring. Abdomen/GI: Soft, non-tender, with normal bowel sounds. No distension or tympany. No guarding or rebound. No evidence of tenderness throughout. Skin: Warm, dry with normal turgor. Normal color with no rashes, no lesions, and no evidence of cellulitis. MS/ Extremity: Pulses equal, no cyanosis. Neurovascular intact. Full, normal range of motion. Neuro: Awake and alert, GCS 15, oriented to person, place, time, and situation. Cranial nerves II-XII grossly intact. Motor strength 5/5 in all extremities. Sensory grossly intact. Cerebellar exam normal. Normal gait. Vital Signs: 09:12 BP 140 / 68; Pulse 105; Resp 20; Temp 98.5; Pulse Ox 96% ; Weight 167.83 kg; Height 5 hb ft. 7 in. (170.18 cm); Pain 2/10; 09:12 Body Mass Index 57.95 (167.83 kg, 170.18 cm) hb MDM: 09:21 Patient medically screened. kb 09:28 Data reviewed: vital signs, nurses notes. Data interpreted: Pulse oximetry: on room air kb is 96 %. Interpretation: normal. Counseling: I had a detailed discussion with the patient and/or guardian regarding: the historical points, exam findings, and any diagnostic results supporting the discharge/admit diagnosis, the need for outpatient follow up, a family practitioner, a general surgeon, to return to the emergency department if symptoms worsen or persist or if there are any questions or concerns that arise at home. 09:33 ED course: No findings on physical exam. US ordered to r/o fluid collection. kb 10:38 ED course: No fluid formation on US. Will discharge with antibiotics. kb 01/31 09:33 Order name: US [place] Nonvasular Limited; Complete Time: 11:01 kb Administered Medications: 09:27 Drug: Bactrim (160 mg-800 mg (DS) 1 tablet Route: PO; hb Disposition: 02/01/20 10:39 Discharged to Home. Impression: Pain of perineum . - Condition is Stable. - Discharge Instructions: Skin Abscess, [id number]. - Prescriptions for Bactrim DS 800- 160 mg Oral Tablet - take 1 tablet by ORAL route every 12 hours for 10 days; 20 tablet. - Medication Reconciliation Form, Thank You Letter, Antibiotic Education, Prescription Opioid Use form. - Follow up: Emergency Department; When: As needed; Reason: Worsening of condition. Follow up: Armin Johnson DO; When: 2 - 3 days; Reason: Recheck today's complaints, Continuance of care, Re-evaluation by your physician. Addendum: 02/04/2020 08:34 Co-signature as Attending Physician, Rodrick Gonsales MD I agree with the assessment and k dr plan of care. Signatures: Dispatcher [employer] EDMS Lucy Jones, SCRAP DROP OPERATOR-C SCRAP DROP OPERATOR-Ckb Rodrick Gonsales MD MD [facility] Karime Griffith RN RN hb Corrections: (The following items were deleted from the chart) 01/31 11:07 10:39 02/01/2020 10:39 Discharged to Home. Impression: Pain of perineum . Condition is hb Stable. Forms are Medication Reconciliation Form, Thank You Letter, Antibiotic Education, Prescription Opioid Use. Follow up: Emergency Department; When: As needed; Reason: Worsening of condition. Follow up: Armin Johnson; When: 2 - 3 days; Reason: Recheck today's complaints, Continuance of care, Re-evaluation by your physician. kb
--- NOTE | 2020-02-01 10:40 | ER ---
Nurse's Notes [facility] Name: Robin Richardson Jr Age: 39 yrs Sex: Male : 1980 Arrival Date: 02/01/2020 Time: 08:56 Bed 17 Private MD: Armin Johnson H Diagnosis: Pain of perineum Presentation: 01/31 09:12 Chief complaint: Patient states: pain to perineal area that started 2 days ago. 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 States Dr Chan told him that it could come back and that if he felt pain like this he needed to get antibiotics azul. Has had the same pain since then and Dr Johnson gave him Bactrim DS that cleared it up. Coronavirus screen: Client denies travel out of the [place] in the last 14 days. At this time, the client does not indicate any symptoms associated with coronavirus-19. Ebola Screen: Patient negative for fever greater than or equal to 101.5 degrees Fahrenheit, and additional compatible Ebola Virus Disease symptoms Patient denies exposure to infectious person. Patient denies travel to an Ebola-affected area in the 21 days before illness onset. No symptoms or risks identified at this time. Initial Sepsis Screen: Does the patient meet any 2 criteria? HR > 90 bpm. Does the patient have a suspected source of infection? No. Patient's initial sepsis screen is negative. Risk Assessment: Do you want to hurt yourself or someone else? Patient reports no desire to harm self or others. Onset of symptoms was January 30, 2020. 09:12 Method Of Arrival: Ambulatory hb 09:12 Acuity: MYRNA 4 hb Triage Assessment: 09:15 General: Appears in no apparent distress. Behavior is calm, cooperative. Pain: hb Complains of pain in perineum Pain does not radiate. Pain currently is 2 out of 10 on a pain scale. Historical: - Allergies: 09:15 No Known Allergies; hb - PMHx: 09:15 None; hb - Immunization history:: Adult Immunizations up to date. - Social history:: Smoking status: Patient reports the use of cigarette tobacco products, smokes one-half pack cigarettes per day. Vital Signs: 09:12 BP 140 / 68; Pulse 105; Resp 20; Temp 98.5; Pulse Ox 96% ; Weight 167.83 kg; Height 5 hb ft. 7 in. (170.18 cm); Pain 2/10; 09:12 Body Mass Index 57.95 (167.83 kg, 170.18 cm) hb ED Course: 08:56 Patient arrived in ED. mr 08:56 Armin Johnson DO is Private Physician. mr 09:15 Triage completed. hb 09:15 Arm band placed on left wrist. EKG completed in triage. Results shown to MD. hb 09:21 Lucy Jonse FNP-C is PHCP. kb 09:21 Rodrick Gonsales MD is Attending Physician. kb 09:23 Karime Griffith, RN is Primary Nurse. hb 10:39 Armin Johnson DO is Referral Physician. kb 10:41 Extrmty Nonvasular Limited In Process Unspecified. EDMS Administered Medications: 09:27 Drug: Bactrim (160 mg-800 mg (DS) 1 tablet Route: PO; hb Outcome: 10:39 Discharge ordered by MD. kb 11:07 Patient left the ED. hb Signatures: Dispatcher [employer] EDMS Lucy Jones FNP-C FNP-Ckb Rivera, Mary mr Karime Griffith, RN RN hb
--- NOTE | 2020-02-01 10:59 | RAD REPORT ---
EXAM DESCRIPTION: US - Extremity Nonvascular Limited - 02/01/2020 10:41 am CLINICAL HISTORY: Perineum mass COMPARISON: None FINDINGS: A 4.8 x 3 x 4.8 centimeter heterogeneous mass is present within the perineum which is palp able. It contains low level echoes with small cystic areas. Increased flow is present within the moon phery. IMPRESSION: 4.8 centimeter mass within the perineum likely is infectious/inflammatory.
[2020-02-01 11:12] VITALS: BP 140/68; TEMP 98.5; O2SAT 96
== END 2020-02-01 11:07 | disposition home or self-care (01) ==
LOC: ER 08:54
DX: R10.2 Pelvic and perineal pain (principal)
CPT/HCPCS: 76882; 99283

== ENCOUNTER 2020-03-17 05:11 | Emergency (ER) | payer BC ==
[2020-03-17 06:08] LABS: Absolute Lymphocytes (CBC) 2.8 K/uL (0.7-4.9); Hematocrit 42.8 % (39.6-49.0); MPV 7.1 fL (7.6-11.3); RBC Red Blood Cell Count 4.77 M/uL (4.33-5.43)
[2020-03-17 06:18] LABS: ALT/SGPT 30 U/L (12-78); AST/SGOT 14 U/L (15-37); Albumin 3.2 g/dL (3.4-5.0); Alkaline Phosphatase 81 U/L (45-117); BUN Blood Urea Nitrogen 15 mg/dL (7-18); Bicarbonate 29 mmol/L (21-32); Bilirubin Direct 0.2 mg/dL (0-0.2); Bilirubin Total 0.5 mg/dL (0.2-1.0); Glucose Level 130 mg/dL (74-106); Magnesium 2.1 mg/dL (1.8-2.4); NT PRO-BNP 17 pg/mL (<125); Protein, Total 7.8 g/dL (6.4-8.2); Sodium Level 139 mmol/L (136-145); Troponin (Emerg Dept Use Only) < 0.02 ng/mL (0.0-0.045)
[2020-03-17] MEDS ORDERED: KETOROLAC 30 MG/ML INJ ONE (07:17)
--- NOTE | 2020-03-17 07:19 | RAD REPORT ---
EXAM DESCRIPTION: RAD - Chest Single View - 03/17/2020 5:53 am CLINICAL HISTORY: CHEST PAIN COMPARISON: September 2010 TECHNIQUE: AP portable chest image was obtained 03/17/2020 5:53 am . FINDINGS: Lungs are clear. Heart and vasculature are normal. No measurable pleural effusion and no p neumothorax. No acute bony abnormality seen. No acute aortic findings suspected. IMPRESSION: No acute cardiopulmonary process. No significant interval change.
--- NOTE | 2020-03-17 07:33 | ER ---
Nurse's Notes [facility] Name: Robin Richardson Jr Age: 40 yrs Sex: Male : 1980 Arrival Date: 03/17/2020 Time: 05:13 Bed 5 Private MD: Diagnosis: Upper Left Back pain Presentation: 03/17 05:24 Chief complaint: Patient states: BACK PAIN RADIATING TO THE CHEST. PRESSURE LIKE. rv DENIES /SOB. DENIES INJURY TO THE AREA. Coronavirus screen: At this time, the client does not indicate any symptoms associated with coronavirus-19. Ebola Screen: No symptoms or risks identified at this time. Initial Sepsis Screen: Does the patient meet any 2 criteria? No. Patient's initial sepsis screen is negative. Does the patient have a suspected source of infection? No. Patient's initial sepsis screen is negative. Risk Assessment: Do you want to hurt yourself or someone else? Patient reports no desire to harm self or others. 05:24 Method Of Arrival: Ambulatory rv 05:24 Acuity: MYRNA 3 rv 05:28 Onset of symptoms is unknown. rv Triage Assessment: 05:26 General: Appears uncomfortable, Behavior is calm, cooperative. Pain: Complains of pain rv in left subscapular area Pain radiates to anterior aspect of left upper chest Pain currently is 2 out of 10 on a pain scale. at worst was 7 out of 10 on a pain scale. Quality of pain is described as pressure, Pain began suddenly, Is intermittent. EENT: No signs and/or symptoms were reported regarding the EENT system. Neuro: Level of Consciousness is awake, alert, obeys commands, Oriented to person, place, time, situation. Cardiovascular: Patient's skin is warm and dry. Respiratory: Airway is patent Respiratory effort is even, unlabored, Breath sounds are clear bilaterally. Derm: Skin is intact. Musculoskeletal: Range of motion: intact in all extremities, Swelling absent. Historical: - Allergies: 05:26 No Known Allergies; rv - Home Meds: 05:26 None [Active]; rv - PMHx: 05:26 None; rv - PSHx: 05:26 None; rv - Immunization history:: Adult Immunizations up to date. - Social history:: Smoking status: Patient reports the use of cigarette tobacco products, smokes one-half pack cigarettes per day. Screenin:27 Abuse screen: Denies threats or abuse. Denies injuries from another. Nutritional rv screening: No deficits noted. Tuberculosis screening: No symptoms or risk factors identified. Fall Risk None identified. Assessment: 07:12 General: Appears in no apparent distress. Behavior is calm, cooperative. Pain: iw Complains of pain in left clavicle and anterior aspect of left upper chest Pain radiates to left scapular area Pain currently is 2 out of 10 on a pain scale. Neuro: Level of Consciousness is awake, alert, obeys commands, Oriented to person, place, time, situation, Moves all extremities. Full function. Cardiovascular: Capillary refill < 3 seconds in bilateral fingers Patient's skin is warm and dry. Respiratory: Respiratory effort is even, unlabored, Respiratory pattern is regular, symmetrical. Derm: Skin is intact, is healthy with good turgor. Musculoskeletal: Range of motion: intact in all extremities. Vital Signs: 05:24 BP 138 / 100; Pulse 94; Resp 19; Temp 98; Pulse Ox 97% ; Weight 167.83 kg; Height 5 ft. rv 7 in. (170.18 cm); Pain 2/10; 07:12 BP 123 / 80; Pulse 85; Resp 18 S; Pulse Ox 97% on R/A; iw 05:24 Body Mass Index 57.95 (167.83 kg, 170.18 cm) rv ED Course: 05:13 Patient arrived in ED. cl3 05:14 Dax Silva, RN is Primary Nurse. rv 05:25 Triage completed. rv 05:27 Arm band placed on right wrist. Patient placed in the treatment room, on a stretcher, rv Patient notified of wait time. 05:27 Patient has correct armband on for positive identification. textile screen printer on. Pulse rv ox on. NIBP on. 05:54 Initial lab(s) drawn, by me, sent to lab. EKG done, by ED staff, reviewed by Dax Silva RN. Inserted saline lock: 18 gauge in right antecubital area, using aseptic technique. Blood collected. 06:01 Lucy Jones FNP-C is PHCP. kb 06:01 Jose Alicea MD is Attending Physician. kb 07:05 Basic Metabolic Panel Sent. sv 07:05 CBC with Diff Sent. sv 07:05 LFT's Sent. sv 07:05 Magnesium Sent. sv 07:05 NT PRO-BNP Sent. sv 07:05 PT-INR Sent. sv 07:05 Troponin (emerg Dept Use Only) Sent. sv 07:13 XRAY Chest (1 view) Sent. sv 07:46 No provider procedures requiring assistance completed. IV discontinued, intact, sv bleeding controlled, No redness/swelling at site. Pressure dressing applied. Administered Medications: 07:08 Drug: TORadol - Ketorolac 15 mg Route: IVP; Site: right antecubital; iw Outcome: 07:33 Discharge ordered by MD. kb 07:47 Discharged to home ambulatory. sv 07:47 Condition: stable 07:47 Discharge instructions given to patient, Instructed on discharge instructions, follow up and referral plans. medication usage, Demonstrated understanding of instructions, follow-up care, medications, Prescriptions given X 2. 07:47 Patient left the ED. sv Signatures: Lucy Jones, RESTORATIVE COORDINATOR-C RESTORATIVE COORDINATOR-CkVero Carey RN RN sv Williams, Irene, RN RN iw Vicente, Ronaldo, RN RN rv Lewis, Charde cl3
--- NOTE | 2020-03-17 07:33 | EDPHYS ---
Physician Documentation [facility] Name: Robin Richardson Jr Age: 40 yrs Sex: Male : 1980 Arrival Date: 03/17/2020 Time: 05:13 Bed 5 Private MD: ED Physician Jose Alicea HPI: 03/17 07:01 This 40 yrs old Male presents to ER via Ambulatory with complaints of Back kb Pain. 07:01 The patient presents with pain that is acute, with no known mechanism of injury. The kb symptoms are located in the left scapular area. Onset: The symptoms/episode began/occurred last night. The pain radiates to the anterior aspect of left upper chest. Associated signs and symptoms: The patient has no apparent associated signs or symptoms. The problem was sustained possibly due to sleeping in recliner. Modifying factors: The patient symptoms are alleviated by "certain positions", the patient symptoms are aggravated by any movement. Severity of symptoms: At their worst the symptoms were moderate, in the emergency department the symptoms are unchanged. The patient has not experienced similar symptoms in the past. The patient has not recently seen a physician. Pt reports he slept in the recliner yesterday and woke up with pain to left upper back. States pain is worse with movement and twisting. Certain positions resolve pain. Historical: - Allergies: 05:26 No Known Allergies; rv - Home Meds: 05:26 None [Active]; rv - PMHx: 05:26 None; rv - PSHx: 05:26 None; rv - Immunization history:: Adult Immunizations up to date. - Social history:: Smoking status: Patient reports the use of cigarette tobacco products, smokes one-half pack cigarettes per day. ROS: 07:01 Constitutional: Negative for fever, chills, and weight loss, Respiratory: Negative for kb shortness of breath, cough, wheezing, and pleuritic chest pain, Abdomen/GI: Negative for abdominal pain, nausea, vomiting, diarrhea, and constipation, : Negative for injury, bleeding, discharge, and swelling, MS/Extremity: Negative for injury and deformity, Skin: Negative for injury, rash, and discoloration, Neuro: Negative for headache, weakness, numbness, tingling, and seizure. 07:01 Cardiovascular: Positive for chest pain, with movement, of the anterior aspect of left upper chest. 07:01 Back: Positive for pain at rest, pain with movement, of the left scapular area. Exam: 06:26 Constitutional: This is a well developed, well nourished patient who is awake, alert, kb and in no acute distress. Head/Face: Normocephalic, atraumatic. Chest/axilla: Normal chest wall appearance and motion. Nontender with no deformity. No lesions are appreciated. Cardiovascular: Regular rate and rhythm with a normal S1 and S2. No gallops, murmurs, or rubs. Normal PMI, no JVD. No pulse deficits. Respiratory: Lungs have equal breath sounds bilaterally, clear to auscultation and percussion. No rales, rhonchi or wheezes noted. No increased work of breathing, no retractions or nasal flaring. Abdomen/GI: Soft, non-tender, with normal bowel sounds. No distension or tympany. No guarding or rebound. No evidence of tenderness throughout. Skin: Warm, dry with normal turgor. Normal color with no rashes, no lesions, and no evidence of cellulitis. MS/ Extremity: Pulses equal, no cyanosis. Neurovascular intact. Full, normal range of motion. Neuro: Awake and alert, GCS 15, oriented to person, place, time, and situation. Cranial nerves II-XII grossly intact. Motor strength 5/5 in all extremities. Sensory grossly intact. Cerebellar exam normal. Normal gait. 06:26 Back: pain, that is mild, that is moderate, of the left scapular area, ROM is painful, with rotation to the left, normal spinal alignment noted. 06:26 ECG was reviewed by the Attending Physician. kb Vital Signs: 05:24 BP 138 / 100; Pulse 94; Resp 19; Temp 98; Pulse Ox 97% ; Weight 167.83 kg; Height 5 ft. rv 7 in. (170.18 cm); Pain 2/10; 07:12 BP 123 / 80; Pulse 85; Resp 18 S; Pulse Ox 97% on R/A; iw 05:24 Body Mass Index 57.95 (167.83 kg, 170.18 cm) rv MDM: 06:01 Patient medically screened. kb 07:00 Data reviewed: vital signs, nurses notes. Data interpreted: Pulse oximetry: on room air kb is 97 %. Interpretation: normal. 07:20 Counseling: I had a detailed discussion with the patient and/or guardian regarding: the kb historical points, exam findings, and any diagnostic results supporting the discharge/admit diagnosis, lab results, radiology results, the need for outpatient follow up, a family practitioner, to return to the emergency department if symptoms worsen or persist or if there are any questions or concerns that arise at home. 07:39 ED course: Pain resolved after toradol. kb 03/17 05:28 Order name: Basic Metabolic Panel rv 03/17 05:28 Order name: CBC with Diff 03/17 05:28 Order name: LFT's 03/17 05:28 Order name: Magnesium 03/17 05:28 Order name: NT PRO-BNP 03/17 05:28 Order name: PT-INR 03/17 05:28 Order name: Troponin (emerg Dept Use Only) 03/17 06:10 Order name: CBC with Automated Diff; Complete Time: 06:10 EDMS 03/17 06:11 Order name: Protime (+INR); Complete Time: 06:20 EDMS 03/17 06:18 Order name: Basic Metabolic Panel; Complete Time: 06:20 EDMS 03/17 06:18 Order name: Liver (Hepatic) Function; Complete Time: 06:20 EDMS 03/17 06:18 Order name: Troponin (Emerg Dept Use Only); Complete Time: 06:20 EDMS 03/17 06:18 Order name: NT PRO-BNP; Complete Time: 06:20 EDMS 03/17 06:18 Order name: Magnesium; Complete Time: 06:20 EDMS 03/17 05:28 Order name: XRAY Chest (1 view) 03/17 05:28 Order name: EKG; Complete Time: 05:29 03/17 05:28 Order name: Cardiac monitoring; Complete Time: 05:40 03/17 05:28 Order name: EKG - Nurse/Tech; Complete Time: 05:40 03/17 05:28 Order name: IV Saline Lock; Complete Time: 05:40 03/17 05:28 Order name: Labs collected and sent; Complete Time: 05:40 03/17 05:28 Order name: O2 Per Protocol; Complete Time: 05:40 03/17 05:28 Order name: O2 Sat Monitoring; Complete Time: 05:40 rv 03/17 07:19 Order name: MARIZA; Complete Time: 07:20 EDMS EC:26 Rate is 93 beats/min. Rhythm is regular. QRS [place] is Normal. ID interval is normal at kb 162 msec. QRS interval is normal at 86 msec. QT interval is normal at 362 msec. Administered Medications: 07:08 Drug: TORadol - Ketorolac 15 mg Route: IVP; Site: right antecubital; iw Disposition: 19:02 Co-signature as Attending Physician, Jose Alicea MD. konstantin Disposition: 03/17/20 07:33 Discharged to Home. Impression: Upper Left Back pain. - Condition is Stable. - Discharge Instructions: Musculoskeletal Pain, Back Pain, Adult, [id number]. - Prescriptions for Cyclobenzaprine 10 mg Oral Tablet - take 1 tablet by ORAL route every 8 hours As needed; 21 tablet. Diclofenac Sodium 75 mg Oral Tablet, Delayed Release (E.C.) - take 1 tablet by ORAL route 2 times per day As needed; 30 tablet. - Medication Reconciliation Form, Thank You Letter, Antibiotic Education, Prescription Opioid Use form. - Follow up: Emergency Department; When: As needed; Reason: Worsening of condition. Follow up: Private Physician; When: 2 - 3 days; Reason: Recheck today's complaints, Continuance of care, Re-evaluation by your physician. Signatures: Dispatcher [employer] EDLucy Zepeda, NICHOLE-Caesar SAP ARIBA CONSULTANT-Vero Motley RN RN sv Lam, Pin, MD MD pkl Lyla Pruett RN RN iw Dax Silva RN RN rv Corrections: (The following items were deleted from the chart) 07:47 07:33 03/17/2020 07:33 Discharged to Home. Impression: Upper Left Back pain. Condition sv is Stable. Forms are Medication Reconciliation Form, Thank You Letter, Antibiotic Education, Prescription Opioid Use. Follow up: Emergency Department; When: As needed; Reason: Worsening of condition. Follow up: Private Physician; When: 2 - 3 days; Reason: Recheck today's complaints, Continuance of care, Re-evaluation by your physician. kb
[2020-03-17 07:57] VITALS: TEMP 98; O2SAT 97
[2020-03-17 07:59] VITALS: BP 123/80
== END 2020-03-17 07:47 | disposition home or self-care (01) ==
LOC: ER 05:11
DX: M54.9 Dorsalgia, unspecified (principal); F17.210 Nicotine dependence, cigarettes, uncomplicated
CPT/HCPCS: 36415; 71045; 80048; 80076; 83735; 83880; 84484; 85025; 85610; 93005; 96374; 99284

== ENCOUNTER 2020-09-25 08:08 | Emergency (ER) | payer BC ==
--- NOTE | 2020-09-25 09:10 | EDPHYS ---
Physician Documentation [facility] Name: Robin Richardson Jr Age: 40 yrs Sex: Male : 1980 Arrival Date: 09/25/2020 Time: 08:10 Bed 8 Private MD: ED Physician Rodrick Gonsales HPI: 09/25 17:18 This 40 yrs old Male presents to ER via Ambulatory with complaints of Rectal kdr Abscess. 17:18 The patient presents to the emergency department with pain in the rectal area, that is kdr mild. Onset: The symptoms/episode began/occurred gradually, 3 day(s) ago. Context: the patient The patient has a history of rectal abscesses and for the past few days he has had increasing discomfort similar to his prior episodes of rectal issues. He would like to get on abx early this time. Modifying factors: The symptoms are alleviated by cool compress, The symptoms are aggravated by movement, sitting position. Associate signs and symptoms: The patient has no apparent associated signs or symptoms. The patient has experienced similar episodes in the past, multiple times. The patient has not recently seen a physician. Historical: - Allergies: 08:33 No Known Allergies; aa5 - PMHx: 08:33 Perirectal abscess; aa5 - PSHx: 08:33 Perirectal abscess; aa5 - Immunization history:: Adult Immunizations unknown. - Social history:: Smoking status: Patient denies any tobacco usage or history of. ROS: 17:18 Constitutional: Negative for fever, chills, and weight loss, Eyes: Negative for injury, kdr pain, redness, and discharge, ENT: Negative for injury, pain, and discharge, Neck: Negative for injury, pain, and swelling, Cardiovascular: Negative for chest pain, palpitations, and edema, Respiratory: Negative for shortness of breath, cough, wheezing, and pleuritic chest pain, Back: Negative for injury and pain, : Negative for injury, bleeding, discharge, and swelling, MS/Extremity: Negative for injury and deformity, Skin: Negative for injury, rash, and discoloration, Neuro: Negative for headache, weakness, numbness, tingling, and seizure activity. Psych: Negative for depression, anxiety, suicide ideation, homicidal ideation, and hallucinations, Allergy/Immunology: Negative for hives, rash, and allergies, Endocrine: Negative for neck swelling, polydipsia, polyuria, polyphagia, and marked weight changes, Hematologic/Lymphatic: Negative for swollen nodes, abnormal bleeding, and unusual bruising. 17:18 Abdomen/GI: Positive for rectal pain, Negative for abdominal pain, nausea, vomiting, and diarrhea, abdominal cramps, abdominal distension, anorexia. Exam: 17:18 Constitutional: This is a well developed, well nourished patient who is awake, alert, kdr and in no acute distress. 17:18 Abdomen/GI: Rectal exam: rectal tone normal, tenderness, that is mild, The patient had mild tenderness but no palpable mass in the 8:00 position. Vital Signs: 08:35 BP 134 / 81; Pulse 105; Resp 20 S; Temp 100.5(TE); Pulse Ox 95% on R/A; Weight 163.29 aa5 kg (R); Height 5 ft. 7 in. (170.18 cm) (R); 08:50 BP 145 / 83; Pulse 104; Resp 18; Temp 97.5(O); Pulse Ox 98% on R/A; Weight 163.29 kg; ld1 Height 5 ft. 8 in. (172.72 cm); Pain 0/10; 08:50 Body Mass Index 54.74 (163.29 kg, 172.72 cm) ld1 MDM: 09:09 Patient medically screened. kdr 17:18 Data reviewed: vital signs, nurses notes. Counseling: I had a detailed discussion with kdr the patient and/or guardian regarding: the historical points, exam findings, and any diagnostic results supporting the discharge/admit diagnosis, the need for outpatient follow up. Administered Medications: No medications were administered Disposition: 09/25/20 09:09 Discharged to Home. Impression: Rectal Pain. - Condition is Stable. - Discharge Instructions: Perirectal Abscess. - Prescriptions for Cipro 500 mg Oral Tablet - take 1 tablet by ORAL route every 12 hours for 10 days; 20 tablet. - Medication Reconciliation Form, Thank You Letter, Antibiotic Education form. - Follow up: Remi Chan MD; When: 2 - 3 days; Reason: If symptoms return, Further diagnostic work-up, Recheck today's complaints, Continuance of care, Re-evaluation by your physician. - Problem is an acute exacerbation. - Symptoms are unchanged. Signatures: Rodrick Gonsales MD MD kdr Samanta Clark, RN RN aa5 Tere Ocampo RN RN ld1 Corrections: (The following items were deleted from the chart) 09:31 09:09 09/25/2020 09:09 Discharged to Home. Impression: Rectal Pain. Condition is ld1 Stable. Forms are Medication Reconciliation Form, Thank You Letter, Antibiotic Education, Prescription Opioid Use. Follow up: Remi Chan; When: 2 - 3 days; Reason: If symptoms return, Further diagnostic work-up, Recheck today's complaints, Continuance of care, Re-evaluation by your physician. Problem is an acute exacerbation. Symptoms are unchanged. kdr
--- NOTE | 2020-09-25 09:10 | ER ---
Nurse's Notes [facility] Name: Robin Richardson Jr Age: 40 yrs Sex: Male : 1980 Arrival Date: 09/25/2020 Time: 08:10 Bed 8 Private MD: Diagnosis: Rectal Pain Presentation: 09/25 08:35 Chief complaint: Patient states: possible rectal abscess, pt reports hx of abscess. aa5 Ebola Screen: Patient negative for fever greater than or equal to 101.5 degrees Fahrenheit, and additional compatible Ebola Virus Disease symptoms. Onset of symptoms was September 2020. 08:35 Method Of Arrival: Ambulatory aa5 08:35 Acuity: MYRNA 3 aa5 08:35 Coronavirus screen: fever. Initial Sepsis Screen: Does the patient meet any 2 criteria? aa5 HR > 90 bpm. Does the patient have a suspected source of infection? Yes:. Risk Assessment: Do you want to hurt yourself or someone else? Patient reports no desire to harm self or others. Historical: - Allergies: 08:33 No Known Allergies; aa5 - PMHx: 08:33 Perirectal abscess; aa5 - PSHx: 08:33 Perirectal abscess; aa5 - Immunization history:: Adult Immunizations unknown. - Social history:: Smoking status: Patient denies any tobacco usage or history of. Screenin:50 Abuse screen: Denies threats or abuse. Denies injuries from another. Nutritional ld1 screening: No deficits noted. Tuberculosis screening: No symptoms or risk factors identified. Fall Risk None identified. Total Desai Fall Scale indicates No Risk (0-24 pts). Assessment: 08:50 General: Appears in no apparent distress. comfortable, Behavior is calm, cooperative, ld1 appropriate for age. 08:50 Pain: Denies pain. Neuro: Level of Consciousness is awake, alert, obeys commands, ld1 Oriented to person, place, time, situation. Cardiovascular: Patient's skin is warm and dry. Respiratory: Airway is patent is compromised Respiratory effort is even, unlabored, Respiratory pattern is regular, symmetrical. GI: Abdomen is round non-distended. : No deficits noted. EENT: No deficits noted. Derm: Abscess located on buttocks Reports burning. Musculoskeletal: No deficits noted. Vital Signs: 08:35 BP 134 / 81; Pulse 105; Resp 20 S; Temp 100.5(TE); Pulse Ox 95% on R/A; Weight 163.29 aa5 kg (R); Height 5 ft. 7 in. (170.18 cm) (R); 08:50 BP 145 / 83; Pulse 104; Resp 18; Temp 97.5(O); Pulse Ox 98% on R/A; Weight 163.29 kg; ld1 Height 5 ft. 8 in. (172.72 cm); Pain 0/10; 08:50 Body Mass Index 54.74 (163.29 kg, 172.72 cm) ld1 ED Course: 08:10 Patient arrived in ED. as 08:35 Rodrick Gonsales MD is Attending Physician. kdr 08:35 Arm band placed on. aa5 08:36 Triage completed. aa5 08:50 Patient has correct armband on for positive identification. Placed in gown. Bed in low ld1 position. Call light in reach. Side rails up X 1. Door closed. Noise minimized. Warm blanket given. 08:50 No provider procedures requiring assistance completed. Patient did not have IV access ld1 during this emergency room visit. 09:08 Remi Chan MD is Referral Physician. kdr 09:27 Tere Ocampo, [place] is Primary Nurse. ld1 Administered Medications: No medications were administered Outcome: : Discharge ordered by . kdr 09:31 Discharged to home ambulatory. ld1 09:31 Condition: stable 09:31 Discharge instructions given to patient, Instructed on discharge instructions, medication usage. 09:31 Patient left the ED. ld1 Signatures: Rodrick Gonsales MD MD kdr Blanca Chan Audri, RN RN aa5 Tere Ocampo, [place] RN ld1 Corrections: (The following items were deleted from the chart) 09:31 08:50 Discharged to home ambulatory, ld1 ld1 09:31 08:50 Condition: stable ld1 ld1 : 08:50 Discharge instructions given to patient, Instructed on discharge instructions, ld1 medication usage, ld1
[2020-09-25 21:07] VITALS: BP 145/83; TEMP 97.5; O2SAT 98
== END 2020-09-25 09:31 | disposition home or self-care (01) ==
LOC: ER 08:08
DX: K62.89 Other specified diseases of anus and rectum (principal)
CPT/HCPCS: 99281

== ENCOUNTER 2020-10-28 16:45 | Emergency (ER) | payer BC ==
[2020-10-28] MEDS ORDERED: IBUPROFEN 400 MG TAB ONE (20:11)
--- NOTE | 2020-10-28 20:24 | RAD REPORT ---
EXAM DESCRIPTION: RAD - Forearm Right - 10/28/2020 7:03 pm CLINICAL HISTORY: PAIN, trip and fall COMPARISON: No comparisons FINDINGS: No gross fracture deformity is seen. Elbow joint is not optimally visualized in the wrist joint not optimally visualized on the forearm examination. No dislocation is seen. No elevation of th e posterior fat pad at the elbow joint. Patient has a significant 10 mm negative ulnar variance confi guration. This is a potential source for wrist pain but is unrelated to any acute event. No gross fra cture deformity of the carpal bones. A thin linear foreign body is seen in the soft tissues of the mid forearm medial to the mid shaft uln a. This is presumed to be unrelated to the acute event. IMPRESSION: No fracture or acute right forearm finding identifiable. Linear foreign body in the medial mid forearm. This is presumed to be old given the absence of any in formation about penetrating injury. Elbow and wrist joints are not optimally positioned for evaluation on a forearm exam. No gross abnorm ality seen.
--- NOTE | 2020-10-28 20:27 | ER ---
Nurse's Notes [facility] Name: Robin Richardson Jr Age: 40 yrs Sex: Male : 1980 Arrival Date: 10/28/2020 Time: 16:49 Bed 23 Private MD: Armin Johnson H Diagnosis: Other specified sprain of right wrist Presentation: 10/28 16:58 Chief complaint: Patient states: i was doing some work in my yard and i tripped over tw2 some boards and i landed mostly on my RIGHT wrist and my back. i am not really worried about the back but my RIGHT wrist is swollen and i can barely move it. Coronavirus screen: At this time, the client does not indicate any symptoms associated with coronavirus-19. Ebola Screen: Patient denies travel to an Ebola-affected area in the 21 days before illness onset. Initial Sepsis Screen: Does the patient meet any 2 criteria? No. Patient's initial sepsis screen is negative. Does the patient have a suspected source of infection? No. Patient's initial sepsis screen is negative. Risk Assessment: Do you want to hurt yourself or someone else? Patient reports no desire to harm self or others. Onset of symptoms was October 28, 2020. 16:58 Method Of Arrival: Ambulatory tw2 16:58 Acuity: MYRNA 4 tw2 Triage Assessment: 17:01 General: Appears in no apparent distress. obese, Behavior is calm, cooperative, tw2 appropriate for age. Pain: Complains of pain in right hand and right wrist. Historical: - Allergies: 17:01 No Known Allergies; tw2 - Home Meds: 17:01 "otc diuretic" [Active]; tw2 - PMHx: 17:01 Perirectal abscess; tw2 - PSHx: 17:01 Perirectal abscess; tw2 - Immunization history:: Adult Immunizations. - Social history:: Smoking status: . Screenin:12 Abuse screen: Denies threats or abuse. Denies injuries from another. Nutritional ca1 screening: No deficits noted. Tuberculosis screening: No symptoms or risk factors identified. Fall Risk Fall in past 12 months (25 points). Assessment: 17:12 General: Appears in no apparent distress. comfortable, Behavior is calm, cooperative, ca1 appropriate for age. Pain: Complains of pain in right wrist Pain currently is 10 out of 10 on a pain scale. Neuro: Level of Consciousness is awake, alert, obeys commands, Oriented to person, place, time, situation. Derm: Skin is intact, is healthy with good turgor, Skin is pink, warm \\T\\ dry. Musculoskeletal: Circulation, motion, and sensation intact. Capillary refill < 3 seconds, Range of motion: intact in all extremities. 18:15 Reassessment: Patient appears in no apparent distress at this time. Patient is alert, ca1 oriented x 3, equal unlabored respirations, skin warm/dry/pink. Pending Xray. 19:29 Reassessment: Patient appears in no apparent distress at this time. Patient and/or ca1 family updated on plan of care and expected duration. Pain level reassessed. Patient is alert, oriented x 3, equal unlabored respirations, skin warm/dry/pink. Vital Signs: 16:58 BP 140 / 93; Pulse 105; Resp 17; Temp 98(TE); Pulse Ox 98% on R/A; Weight 165.56 kg; tw2 Height 5 ft. 8 in. (172.72 cm); 18:15 BP 153 / 93; Pulse 100; Resp 16 S; Pulse Ox 99% on R/A; ca1 20:35 BP 143 / 89; Pulse 95; Resp 16 S; Pulse Ox 100% on R/A; ca1 16:58 Body Mass Index 55.50 (165.56 kg, 172.72 cm) tw2 ED Course: 16:49 Patient arrived in ED. mr 16:50 Armin Johnson DO is Private Physician. mr 17:00 Triage completed. tw2 17:01 Arm band placed on. tw2 17:02 Maria Victoria Jaquez, [place] is Primary Nurse. ca1 17:02 Lucy Jones FNP-C is PHCP. kb 17:02 Dinesh Vigil MD is Attending Physician. kb 17:12 Patient has correct armband on for positive identification. Bed in low position. Call ca1 light in reach. Side rails up X 1. Pulse ox on. NIBP on. 19:02 Forearm Right XRAY In Process Unspecified. EDMS 20:33 Dalton wrap to left wrist and right wrist. ca1 20:35 No provider procedures requiring assistance completed. Patient did not have IV access ca1 during this emergency room visit. Administered Medications: 19:54 Drug: Ibuprofen 800 mg Route: PO; ca1 20:32 Follow up: Response: No adverse reaction; Pain is decreased ca1 Outcome: 20:26 Discharge ordered by MD. joyner 20:35 Discharged to home ambulatory. ca1 20:35 Condition: stable 20:35 Discharge instructions given to patient, Instructed on discharge instructions, follow up and referral plans. no drinking with medication, no driving heavy equipment, medication usage, Demonstrated understanding of instructions, follow-up care, medications, Prescriptions given X 2. 20:35 Patient left the ED. ca1 Signatures: Dispatcher [employer] EDMS Lucy Jones, BODY MAKER MACHINE SETTER-C BODY MAKER MACHINE SETTER-Melanie Sapp mr Charlette Keys, RN RN tw2 Maria Victoria Jaquez RN RN ca1
--- NOTE | 2020-10-28 20:27 | EDPHYS ---
Physician Documentation [facility] Name: Robin Richardson Jr Age: 40 yrs Sex: Male : 1980 Arrival Date: 10/28/2020 Time: 16:49 Bed 23 Private MD: Armin Johnson H ED Physician Dinesh Vigil HPI: 10/28 20:23 This 40 yrs old Male presents to ER via Ambulatory with complaints of Fall kb Injury, Wrist Injury. 20:23 Onset: The symptoms/episode began/occurred today. Associated injuries: The patient kb sustained right wrist, decreased range of motion, painful injury. Severity of symptoms: At their worst the symptoms were mild, moderate, in the emergency department the symptoms are unchanged. The patient has not experienced similar symptoms in the past. The patient has not recently seen a physician. 20:23 Details of fall: The patient fell from an upright position, while walking. Pt reports kb he was walking in his yard, tripped and fell onto right wrist. c/o pain to wrist and right low back. Historical: - Allergies: 17:01 No Known Allergies; tw2 - Home Meds: 17:01 "otc diuretic" [Active]; tw2 - PMHx: 17:01 Perirectal abscess; tw2 - PSHx: 17:01 Perirectal abscess; tw2 - Immunization history:: Adult Immunizations. - Social history:: Smoking status: . ROS: 20:20 Constitutional: Negative for fever, chills, and weight loss, Skin: Negative for injury, kb rash, and discoloration. 20:20 MS/extremity: Positive for decreased range of motion, pain, swelling, tenderness, of the right wrist. 20:20 All other systems are negative. 20:30 Back: Positive for pain at rest, pain with movement, of the right low back. kb Exam: 20:22 Constitutional: This is a well developed, well nourished patient who is awake, alert, kb and in no acute distress. Head/Face: Normocephalic, atraumatic. ENT: Moist Mucous membranes Respiratory: Respirations even and unlabored. No increased work of breathing, no retractions or nasal flaring. Skin: Warm, dry with normal turgor. Normal color. Neuro: Awake and alert, GCS 15, oriented to person, place, time, and situation. Moves all extremities. Normal gait. Psych: Awake, alert, with orientation to person, place and time. Behavior, mood, and affect are within normal limits. 20:22 Musculoskeletal/extremity: Extremities: grossly normal except: noted in the right wrist: decreased ROM, pain, swelling, tenderness, ROM: limited active range of motion due to pain, in the right wrist, Circulation is intact in all extremities. Sensation intact. 20:29 Back: pain, that is mild, of the right low back, ROM is normal, normal spinal kb alignment noted, CVA tenderness, is absent, vertebral tenderness, is not appreciated. Vital Signs: 16:58 BP 140 / 93; Pulse 105; Resp 17; Temp 98(TE); Pulse Ox 98% on R/A; Weight 165.56 kg; tw2 Height 5 ft. 8 in. (172.72 cm); 18:15 BP 153 / 93; Pulse 100; Resp 16 S; Pulse Ox 99% on R/A; ca1 20:35 BP 143 / 89; Pulse 95; Resp 16 S; Pulse Ox 100% on R/A; ca1 16:58 Body Mass Index 55.50 (165.56 kg, 172.72 cm) tw2 MDM: 17:02 Patient medically screened. kb 20:18 Data reviewed: vital signs, nurses notes. Data interpreted: Pulse oximetry: on room air kb is 99 %. Interpretation: normal. Counseling: I had a detailed discussion with the patient and/or guardian regarding: the historical points, exam findings, and any diagnostic results supporting the discharge/admit diagnosis, radiology results, the need for outpatient follow up, a orthopedic surgeon, to return to the emergency department if symptoms worsen or persist or if there are any questions or concerns that arise at home. ED course: Pt is upset about the time that it is taking to get x-ray results. x-ray was taken 2 hours after order placed. [facility] has asked Dr Polo to read x-ray a few times. Dr Polo is reading the x-ray now. Pt informed.. 10/28 17:17 Order name: Forearm Right XRAY; Complete Time: 20:25 kb 10/28 20:26 Order name: Dalton Wrap; Complete Time: 20:32 kb Administered Medications: 19:54 Drug: Ibuprofen 800 mg Route: PO; ca1 20:32 Follow up: Response: No adverse reaction; Pain is decreased ca1 Disposition: 10/29 19:06 Co-signature as Attending Physician, Dinesh Vigil MD. rn Disposition: 10/28/20 20:26 Discharged to Home. Impression: Other specified sprain of right wrist. - Condition is Stable. - Discharge Instructions: Wrist Pain, Zscr-on-[id number], Wrist Sprain. - Prescriptions for Tylenol- Codeine #3 300-30 mg Oral Tablet - take 1 tablet by ORAL route every 4-6 hours As needed; 15 tablet. orphenadrine citrate 100 mg Oral Tablet Sustained Release - take 1 tablet by ORAL route 2 times per day As needed; 20 tablet. - Medication Reconciliation Form, Thank You Letter, Antibiotic Education, Prescription Opioid Use, Work release form form. - Follow up: Emergency Department; When: As needed; Reason: Worsening of condition. Follow up: Private Physician; When: 2 - 3 days; Reason: Recheck today's complaints, Continuance of care, Re-evaluation by your physician. Signatures: Dispatcher [employer] [facility] Lucy Jones, COMPOSITE WORKER-C COMPOSITE WORKER-CkDinesh Jarrett MD MD rn Wise, Tara, RN RN tw2 Maria Victoria Jaquez RN RN ca1 Corrections: (The following items were deleted from the chart) 10/28 17:20 17:03 Wrist Right 3 View+RAD.RAD.BRZ ordered. [facility] 20:30 20:22 Constitutional: This is a well developed, well nourished patient who is awake, kb alert, and in no acute distress. Head/Face: Normocephalic, atraumatic. ENT: Moist Mucous membranes Respiratory: Respirations even and unlabored. No increased work of breathing, no retractions or nasal flaring. Skin: Warm, dry with normal turgor. Normal color. Neuro: Awake and alert, GCS 15, oriented to person, place, time, and situation. Moves all extremities. Normal gait. Psych: Awake, alert, with orientation to person, place and time. Behavior, mood, and affect are within normal limits. kb 20:30 20:23 Pt reports he was walking in his yard, tripped and fell onto right wrist. c/o kb pain to wrist. kb 20:35 20:26 10/28/2020 20:26 Discharged to Home. Impression: Other specified sprain of right ca1 wrist. Condition is Stable. Prescriptions for Tylenol-Codeine #3 300-30 mg Oral Tablet - take 1 tablet by ORAL route every 4-6 hours As needed; 15 tablet. and Forms are Medication Reconciliation Form, Thank You Letter, Antibiotic Education, Prescription Opioid Use. Follow up: Emergency Department; When: As needed; Reason: Worsening of condition. Follow up: Private Physician; When: 2 - 3 days; Reason: Recheck today's complaints, Continuance of care, Re-evaluation by your physician. kb
[2020-10-28 20:46] VITALS: TEMP 98
[2020-10-28 20:48] VITALS: BP 143/89; O2SAT 100
== END 2020-10-28 20:35 | disposition home or self-care (01) ==
LOC: ER 16:45
DX: S63.591A Other specified sprain of right wrist, initial encounter (principal); W01.0XXA Fall on same level from slipping, tripping and stumbling without subsequent striking against object, initial encounter; Y93.01 Activity, walking, marching and hiking; Y92.89 Other specified places as the place of occurrence of the external cause
CPT/HCPCS: 99284

== ENCOUNTER 2021-03-09 13:10 | Emergency (ER) | payer BC ==
[2021-03-09 14:19] LABS: Absolute Lymphocytes (CBC) 2.1 K/uL (0.7-4.9); Basophils % 0.8 % (0-1.3); Hematocrit 44.5 % (39.6-49.0); Lymphocytes % 20.9 % (15.3-44.8); MPV 7.2 fL (7.6-11.3); RBC Red Blood Cell Count 4.97 M/uL (4.33-5.43)
[2021-03-09] MEDS ORDERED: NA CHLORIDE 0.9% 1,000 ML ONE ×2 (14:31→15:57)
[2021-03-09 14:32] LABS: ALT/SGPT 75 U/L (12-78); AST/SGOT 32 U/L (15-37); Albumin 3.5 g/dL (3.4-5.0); Alkaline Phosphatase 115 U/L (45-117); BUN Blood Urea Nitrogen 11 mg/dL (7-18); Bicarbonate 30 mmol/L (21-32); Bilirubin Direct 0.1 mg/dL (0-0.2); Bilirubin Total 0.6 mg/dL (0.2-1.0); Glucose Level 367 mg/dL (74-106); Lipase 108 U/L (73-393); Sodium Level 137 mmol/L (136-145)
--- NOTE | 2021-03-09 16:49 | ER ---
Nurse's Notes [facility] Name: Robin Richardson Jr Age: 41 yrs Sex: Male : 1980 Arrival Date: 03/09/2021 Time: 13:14 Bed 17 Private MD: Armin Johnson H Diagnosis: Diabetes mellitus due to underlying condition with hyperglycemia Presentation: 03/09 13:39 Chief complaint: Patient states: Had labs done and they sent me for high blood sugar of jl7 430. Coronavirus screen: Vaccine status: Patient reports being unvaccinated. At this time, the client does not indicate any symptoms associated with coronavirus-19. Ebola Screen: No symptoms or risks identified at this time. Initial Sepsis Screen: Does the patient meet any 2 criteria? No. Patient's initial sepsis screen is negative. Does the patient have a suspected source of infection? No. Patient's initial sepsis screen is negative. Risk Assessment: Do you want to hurt yourself or someone else? Patient reports no desire to harm self or others. Onset of symptoms is unknown. 13:39 Method Of Arrival: Ambulatory 7 13:39 Acuity: MYRNA 2 jl7 Triage Assessment: 13:40 General: Appears in no apparent distress. uncomfortable, Behavior is calm, cooperative, jl7 appropriate for age. Pain: Denies pain. Historical: - Allergies: 13:40 No Known Allergies; jl7 - Home Meds: 13:40 None [Active]; jl7 - PMHx: 13:40 Perirectal abscess; jl7 - PSHx: 13:40 abscess; jl7 - Immunization history:: Adult Immunizations not up to date, Client reports having NOT received the Covid vaccine. - Social history:: Smoking status: Patient denies any tobacco usage or history of. Screenin:55 Abuse screen: Denies threats or abuse. Nutritional screening: No deficits noted. poss tc5 DM, high FSBG today, not feeling well x 2 weeks.. Tuberculosis screening: No symptoms or risk factors identified. Fall Risk None identified. Assessment: 13:57 General: Appears in no apparent distress. Behavior is calm, cooperative, appropriate tc5 for age, Reports not feeling well x 2 weeks, just not right and increased [place]. pt reports had BG checked today and it was over 400, [id number]. Pain: Denies pain. Neuro: No deficits noted. Cardiovascular: No deficits noted. Respiratory: No deficits noted. GI: No deficits noted. : Reports increased urination. Derm: No deficits noted. Musculoskeletal: No deficits noted. Vital Signs: 13:39 BP 159 / 109; Pulse 94; Resp 17; Temp 98; Pulse Ox 97% on R/A; Weight 172.37 kg; Height jl7 5 ft. 7 in. (170.18 cm); Pain 0/10; 14:00 BP 148 / 92; Pulse 82; Pulse Ox 98% ; tc5 16:36 BP 163 / 94; Resp 18; Pulse Ox 96% ; tc5 13:39 Body Mass Index 59.52 (172.37 kg, 170.18 cm) jl7 ED Course: 13:14 Patient arrived in ED. mr 13:14 Armin Johnson DO is Private Physician. mr 13:40 Triage completed. jl7 13:40 Arm band placed on right wrist. jl7 13:49 Lincoln Harper PA is PHCP. cp 13:49 Dinesh Vigil MD is Attending Physician. cp 13:56 Patient has correct armband on for positive identification. Call light in reach. Side tc5 rails up X 1. 13:56 No provider procedures requiring assistance completed. tc5 14:00 Inserted saline lock: 20 gauge in left antecubital area, using aseptic technique. Blood mt collected. 15:32 Claudia Taylor RN is Primary Nurse. tc5 16:48 Armin Johnson DO is Referral Physician. cp Administered Medications: 14:35 Drug: NS 0.9% 1000 ml Route: IV; Rate: 1 bolus; Site: left antecubital; tc5 16:35 Follow up: IV Status: Completed infusion tc5 14:36 Drug: NS 0.9% 1000 ml Route: IV; Rate: 1 bolus; Site: left antecubital; tc5 16:35 Follow up: IV Status: Completed infusion tc5 Outcome: 16:48 Discharge ordered by . cp 17:13 Patient left the ED. tc5 Signatures: Melanie Fields mr Lincoln Harper PA PA Amina Mcgrath RN RN jl7 Nola Gomez ny Cassaboom, Claudia, RN RN tc5 Corrections: (The following items were deleted from the chart) 13:40 PMHx: None; jl7 jl7 13:40 PSHx: None; jl7 jl7
--- NOTE | 2021-03-09 16:49 | EDPHYS ---
Physician Documentation [facility] Name: Robin Richardson Jr Age: 41 yrs Sex: Male : 1980 Arrival Date: 03/09/2021 Time: 13:14 Bed 17 Private MD: Armin Johnson H ED Physician Dinesh Vigil HPI: 03/09 13:55 This 41 yrs old Male presents to ER via Ambulatory with complaints of High cp Blood Sugar. 13:55 The patient or guardian reports generalized fatigue, hyperglycemia, polyuria, that was cp potentially precipitated by no particular event. Onset: The symptoms/episode began/occurred 2 week(s) ago. Patient denies PMHX significant for diabetes. Reports increased thirst, urinating more often, and general fatigue for past 2 weeks. Went to [facility] this morning where he had his glucose checked and was told it was high so he was referred to ED for evaluation. Historical: - Allergies: 13:40 No Known Allergies; jl7 - Home Meds: 13:40 None [Active]; jl7 - PMHx: 13:40 Perirectal abscess; jl7 - PSHx: 13:40 abscess; jl7 - Immunization history:: Adult Immunizations not up to date, Client reports having NOT received the Covid vaccine. - Social history:: Smoking status: Patient denies any tobacco usage or history of. ROS: 14:00 Constitutional: Positive for fatigue, Negative for body aches, chills, fever, poor PO cp intake. 14:00 Eyes: Negative for injury, pain, redness, and discharge. cp 14:00 ENT: Negative for ear pain, sore throat, difficulty swallowing, difficulty handling secretions. 14:00 Cardiovascular: Negative for chest pain, edema, palpitations. 14:00 Respiratory: Negative for cough, shortness of breath, wheezing. 14:00 Abdomen/GI: Negative for abdominal pain, nausea, vomiting, and diarrhea, constipation. Exam: 14:05 Constitutional: The patient appears in no acute distress, alert, awake, cp non-diaphoretic, non-toxic, well developed, well nourished, obese. 14:05 Head/Face: Normocephalic, atraumatic. cp 14:05 Eyes: Periorbital structures: appear normal, Conjunctiva: normal, no exudate, no injection, Sclera: no appreciated abnormality, Lids and lashes: appear normal, bilaterally. 14:05 ENT: External ear(s): are unremarkable, Nose: is normal, Mouth: Lips: moist, Oral mucosa: moist, Posterior pharynx: Airway: no evidence of obstruction, patent. 14:05 Chest/axilla: Inspection: normal, Palpation: is normal, no crepitus, no tenderness. 14:05 Cardiovascular: Rate: normal, Rhythm: regular, Edema: is not appreciated, JVD: is not appreciated. 14:05 Respiratory: the patient does not display signs of respiratory distress, Respirations: normal, no use of accessory muscles, no retractions, labored breathing, is not present, Breath sounds: are clear throughout, no decreased breath sounds, no stridor, no wheezing. 14:05 Abdomen/GI: Inspection: obese Bowel sounds: active, all quadrants, Palpation: abdomen is soft and non-tender, in all quadrants. 14:05 Back: pain, is absent, ROM is normal. 14:05 Neuro: Orientation: to person, place \T\ time. Mentation: is normal, Motor: is normal, moves all fours, strength is normal, Sensation: is normal. 14:10 ECG was reviewed by the Attending Physician. cp Vital Signs: 13:39 BP 159 / 109; Pulse 94; Resp 17; Temp 98; Pulse Ox 97% on R/A; Weight 172.37 kg; Height jl7 5 ft. 7 in. (170.18 cm); Pain 0/10; 14:00 BP 148 / 92; Pulse 82; Pulse Ox 98% ; tc5 16:36 BP 163 / 94; Resp 18; Pulse Ox 96% ; tc5 13:39 Body Mass Index 59.52 (172.37 kg, 170.18 cm) jl7 MDM: 13:54 Patient medically screened. cp 14:20 Differential diagnosis: DKA, hyperglycemia, hyperthyroidism, new onset diabetes. cp 16:48 Data reviewed: vital signs, nurses notes, lab test result(s), EKG. cp 16:48 Counseling: I had a detailed discussion with the patient and/or guardian regarding: the cp historical points, exam findings, and any diagnostic results supporting the discharge/admit diagnosis, lab results, radiology results, the need for outpatient follow up, for definitive care, a family practitioner, to return to the emergency department if symptoms worsen or persist or if there are any questions or concerns that arise at home. Response to treatment: the patient's symptoms have mildly improved after treatment, and as a result, I will discharge patient. 03/09 13:54 Order name: Basic Metabolic Panel; Complete Time: 14:34 03/09 14:34 Interpretation: Normal except: GLUC 367. 03/09 13:54 Order name: CBC with Diff; Complete Time: 14:34 03/09 13:54 Order name: Hepatic Function; Complete Time: 14:34 03/09 13:54 Order name: Lipase; Complete Time: 14:34 03/09 13:54 Order name: Ketone, Serum; Complete Time: 14:34 03/09 14:06 Order name: Glucose, Ancillary Testing [facility] 03/09 13:49 Order name: Accucheck Blood Glucose; Complete Time: 14:01 03/09 13:54 Order name: IV Saline Lock; Complete Time: 14:01 03/09 13:54 Order name: Labs collected and sent; Complete Time: 14:01 03/09 14:09 Order name: EKG; Complete Time: 14:09 03/09 17:01 Order name: Glucose, Ancillary Testing [facility] 03/09 14:09 Order name: EKG - Nurse/Tech; Complete Time: 14:18 03/09 15:42 Order name: Accucheck Blood Glucose: recheck after administration of IV fluids cp EC:10 Rate is 94 beats/min. Rhythm is regular. NM interval is normal. QRS interval is normal. cp QT interval is normal. T waves are Inverted in lead aVR. Interpreted by me. Reviewed by me. Administered Medications: 14:35 Drug: NS 0.9% 1000 ml Route: IV; Rate: 1 bolus; Site: left antecubital; tc5 16:35 Follow up: IV Status: Completed infusion tc5 14:36 Drug: NS 0.9% 1000 ml Route: IV; Rate: 1 bolus; Site: left antecubital; tc5 16:35 Follow up: IV Status: Completed infusion tc5 Disposition: 18:03 Co-signature as Attending Physician, Dinesh Vigil MD I agree with the assessment and rn plan of care. Attestation: The patient's history, exam findings, diagnostics, and a summary of any interventions or procedures was reviewed in detail with Lincoln MORTENSEN. Disposition Summary: 03/09/21 16:48 Discharge Ordered Location: Home cp Problem: new cp Symptoms: have improved cp Condition: Stable cp Diagnosis - Diabetes mellitus due to underlying condition with hyperglycemia cp Followup: cp - With: Armin Johnson DO - When: 2 - 3 days - Reason: Recheck today's complaints Discharge Instructions: - Discharge Summary Sheet cp - Type 2 Diabetes Mellitus, Diagnosis, Adult cp - Form - Daily Diabetes Record cp - Blood Glucose Monitoring, Adult cp - Diabetes Mellitus and Nutrition, Adult cp Forms: - Medication Reconciliation Form cp - Thank You Letter cp - Antibiotic Education cp - Prescription Opioid Use cp Prescriptions: - metformin 500 mg Oral tablet - take 1 tablet by ORAL route 2 times per day with morning and evening meals; 60 cp tablet; Refills: 0, Product Selection Permitted Signatures: Dispatcher [employer] EDMS Dinesh Vigil MD MD rn Page, Corey, PA PA cp Amina Mendoza RN RN jl7 Claudia Taylor RN RN tc5 Corrections: (The following items were deleted from the chart) 13:43 13:40 PMHx: None; jlMargot jl7 13:43 13:40 PSHx: None; celestine jl7
[2021-03-09 18:15] VITALS: TEMP 98
[2021-03-09 18:18] VITALS: BP 163/94; O2SAT 96
--- NOTE | 2021-03-10 10:26 | EKG ---
Test Date: 2021-03-09 Test Time: 14:04:44 Spanish Lecturer: BALJIT MEASUREMENT RESULTS: Intervals: Rate: 94 DE: 170 QRSD: 64 QT: 338 QTc: 422 [place]: P: 53 DE: 170 QRS: 76 T: 37 INTERPRETIVE STATEMENTS: Normal sinus rhythm Cannot rule out Anterior infarct, age undetermined Abnormal ECG Compared to ECG 03/17/2020 05:36:45 Myocardial infarct finding now present Electronically Signed On 03-10-21 10:22:09 CDT by Alberto Luna
== END 2021-03-09 17:13 | disposition home or self-care (01) ==
LOC: ER 13:10
DX: E11.65 Type 2 diabetes mellitus with hyperglycemia (principal)
CPT/HCPCS: 96361; 93005; 85025; 80048; 36415; 82010; 82947 ×2; 80076; 83690; 96360; 99283; J7030 ×2

== ENCOUNTER 2023-05-16 20:32 | Emergency (ER) | payer BC, SELFPAY ==
[2023-05-16] MEDS ORDERED: LIDOCAINE 1% MPF 30 ML VIAL ONE (23:19)
[2023-05-16] MEDS ORDERED: CEPHALEXIN 250 MG CAP ONE (23:48)
[2023-05-16] MEDS ORDERED: HYDROCODONE/APAP 5/325 MG TAB ONE (23:48)
[2023-05-16] MEDS ORDERED: SMZ./TMP. 800/160 MG TABLET ONE (23:48)
[2023-05-16] MEDS ORDERED: PROMETHAZINE 25 MG TABLET ONE (23:48)
[2023-05-16] MEDS ORDERED: ONDANSETRON 4 MG (ODT) TAB ONE (23:49)
[2023-05-16] MEDS ORDERED: IBUPROFEN 400 MG TAB ONE (23:49)
[2023-05-17] MEDS ORDERED: NA CHLORIDE 0.9% 1,000 ML ONE (00:56)
[2023-05-17 01:12] LABS: Absolute Lymphocytes (CBC) 2.6 K/uL (0.7-4.9); Hematocrit 42.7 % (39.6-49.0); MPV 6.7 fL (7.6-11.3); Platelets 302 thou/uL (152-406); RBC Red Blood Cell Count 4.75 M/uL (4.33-5.43)
[2023-05-17 01:20] LABS: Albumin 2.9 g/dL (3.4-5.0); Bilirubin Direct 0.2 mg/dL (0-0.2); Bilirubin Indirect, Calculated 0.8 mg/dL (0.2-0.8); Magnesium 1.9 mg/dL (1.6-2.4); Potassium 3.8 mEq/L (3.5-5.1)
--- NOTE | 2023-05-17 01:33 | ER ---
Nurse's Notes [facility] Name: Robin Richardson Jr Age: 43 yrs Sex: Male : 1980 Arrival Date: 05/16/2023 Time: 20:32 Bed 15 Private MD: Diagnosis: Cutaneous abscess of buttock;Cutaneous abscess of perineum Presentation: 05/16 20:59 Chief complaint: Patient states: "I have a abscess for the past 3 days on my lower left mb9 butt cheek". 21:03 Coronavirus screen: At this time, the client does not indicate any symptoms associated mb9 with coronavirus-19. Ebola Screen: No symptoms or risks identified at this time. Initial Sepsis Screen: Does the patient meet any 2 criteria? No. Patient's initial sepsis screen is negative. Does the patient have a suspected source of infection? No. Patient's initial sepsis screen is negative. Risk Assessment: Do you want to hurt yourself or someone else? Patient reports no desire to harm self or others. Onset of symptoms was May 16, 2023. 21:03 Method Of Arrival: Ambulatory mb9 21:03 Acuity: MYRNA 3 mb9 Historical: - Allergies: 21:02 No Known Allergies; mb9 - Home Meds: 21:02 Metformin Oral [Active]; Glimepiride Oral [Active]; mb9 - PMHx: 21:02 Perirectal abscess; mb9 - PSHx: 21:02 abscess; mb9 - Immunization history:: Adult Immunizations up to date. - Social history:: Smoking status: Patient denies any tobacco usage or history of. - Family history:: not pertinent. Screenin:44 [facility] ED Fall Risk Assessment (Adult) Score/Fall Risk Level 0 - 2 = Low Risk. Abuse as6 screen: Denies threats or abuse. Denies injuries from another. Nutritional screening: No deficits noted. Tuberculosis screening: No symptoms or risk factors identified. Assessment: 23:43 General: Appears in no apparent distress. Behavior is calm, cooperative. Pain: as6 Complains of pain in buttocks. Neuro: Level of Consciousness is awake, alert, obeys commands, Oriented to person, place, time, situation. Cardiovascular: Capillary refill < 3 seconds Patient's skin is warm and dry. Respiratory: Respiratory effort is even, unlabored, Respiratory pattern is regular, symmetrical. GI: No deficits noted. No signs and/or symptoms were reported involving the gastrointestinal system. : No deficits noted. No signs and/or symptoms were reported regarding the genitourinary system. EENT: No deficits noted. No signs and/or symptoms were reported regarding the EENT system. Derm: Abscess located on gluteal cleft is half dollar sized, has purulent drainage, has foul odor, is red, is raised. Vital Signs: 21:03 BP 130 / 93; Pulse 128; Resp 18; Temp 100.2; Pulse Ox 97% on R/A; Weight 165.56 kg; mb9 Height 5 ft. 7 in. ; 23:45 BP 152 / 96; Pulse 140; Resp 18 S; Pulse Ox 95% on R/A; as6 05/17 01:47 Pulse 101; Resp 15 S; Temp 98.5(O); Pulse Ox 96% on R/A; as6 05/16 21:03 Body Mass Index 57.17 (165.56 kg, 170.18 cm) mb9 ED Course: 05/16 20:36 Patient arrived in ED. gm2 20:37 Naldo Juan MD is Attending Physician. sp4 21:02 Arm band placed on. mb9 21:04 Triage completed. mb9 22:58 Hardeep Garcia, RN is Primary Nurse. as6 23:44 Bed in low position. Call light in reach. as6 23:45 Assist provider with I \\T\\ D: of an abscess on right perianal Set up I\\T\\D tray. Performed as 6 by Naldo Juan MD Wound packed. iodoform gauze, Patient tolerated well. 05/17 00:41 Inserted saline lock: 20 gauge in right antecubital area, using aseptic technique. as6 Blood collected. 01:32 Remi Chan MD is Referral Physician. sp4 01:47 Provided Education on: follow up. as6 01:47 IV discontinued, intact, bleeding controlled, No redness/swelling at site. Pressure as6 dressing applied. Administered Medications: 05/16 23:15 Drug: Lidocaine Infiltration (1 %) 30 ml 20 ml Infiltration once; to bedside {Note: as6 administered by provider.} Volume: 20 ml; Route: Infiltration; 05/17 01:45 Follow up: Response: No adverse reaction 05/16 23:42 Drug: Trimethoprim-Sulfamethoxazole PO (160 mg-800 mg (DS) 1 tablet PO once Route: PO; 05/17 01:45 Follow up: Response: No adverse reaction 05/16 23:42 Drug: Cephalexin PO 500 mg PO once Route: PO; 05/17 01:45 Follow up: Response: No adverse reaction 05/16 23:42 Drug: HYDROcodone-acetaminophen PO 5 mg-325 mg 2 tabs PO once Route: PO; 05/17 01:45 Follow up: Response: No adverse reaction 05/16 23:42 Drug: Ibuprofen PO 800 mg PO once Route: PO; 05/17 01:46 Follow up: Response: No adverse reaction 05/16 23:42 Drug: Ondansetron PO 4 mg PO once Route: PO; 05/17 01:46 Follow up: Response: No adverse reaction 05/16 23:42 Drug: Promethazine PO 25 mg PO once Route: PO; 05/17 01:46 Follow up: Response: No adverse reaction as6 00:44 Drug: NS 0.9% IV 1000 ml IV at 1 bolus Per protocol; 1000 mL bolus Route: IV; Rate: 1 as6 bolus; Site: right antecubital; 01:44 Follow up: Response: No adverse reaction; IV Status: Completed infusion; IV Intake: as6 1000ml Medication: 05/16 23:44 VIS not applicable for this client. as6 Point of Care Testing: Blood Glucose: 23:42 Blood Glucose: 230 mg/dL; as6 Ranges: Intake: 05/17 01:44 IV: 1000ml; Total: 1000ml. as6 Outcome: 01:32 Discharge ordered by . sp4 01:47 Discharged to home ambulatory, as6 01:47 Condition: stable 01:47 Discharge instructions given to patient, Instructed on discharge instructions, follow up and referral plans. medication usage, Demonstrated understanding of instructions, follow-up care, medications, Prescriptions given X 4, 01:48 Patient left the ED. as6 Signatures: Hardeep Garcia RN RN as6 Melanie Hebert RN RN mb9 Naldo Juan MD MD spNicole Gomez 2
--- NOTE | 2023-05-17 01:33 | EDPHYS ---
Physician Documentation [facility] Name: Robin Richardson Jr Age: 43 yrs Sex: Male : 1980 Arrival Date: 05/16/2023 Time: 20:32 Bed 15 Private MD: ED Physician Naldo Juan HPI: 05/16 20:37 This 43 yrs old Male presents to ER via Unassigned with complaints of Abscess. sp4 21:02 43-year-old male presents with left buttock abscess. Patient states abscess started 3 sp4 days ago. Patient states the abscess self drained partially while he was waiting in the waiting room. Patient reported purulent drainage right in the waiting area. Patient states this is a recurrent abscess he had in the past twice. Patient has history of diabetes he takes metformin and glimepiride. . 23:49 Patient reports that abscess is close to his perineum on the left side of his buttock sp4 also close to perianal area. Historical: - Allergies: 21:02 No Known Allergies; mb9 - Home Meds: 21:02 Metformin Oral [Active]; Glimepiride Oral [Active]; mb9 - PMHx: 21:02 Perirectal abscess; mb9 - PSHx: 21:02 abscess; mb9 - Immunization history:: Adult Immunizations up to date. - Social history:: Smoking status: Patient denies any tobacco usage or history of. - Family history:: not pertinent. ROS: 23:49 Constitutional: Negative for fever, chills, and weight loss, Abdomen/GI: Negative for sp4 abdominal pain, nausea, vomiting, diarrhea, and constipation, positive for abscess swelling pain tenderness left buttock left perianal and 23:49 All other systems are negative, Exam: 23:49 Constitutional: This is a well developed, well nourished patient who is awake, alert, sp4 and in no acute distress. Head/Face: Normocephalic, atraumatic. Eyes: Pupils equal round and reactive to light, extra-ocular motions intact. Lids and lashes normal. Conjunctiva and sclera are not injected. Cornea within normal limits. Periorbital areas with no swelling, redness, or edema. ENT: Nares patent. No nasal discharge, no septal abnormalities noted. Tympanic membranes are normal and external auditory canals are clear. Oropharynx with no redness, swelling, or masses, exudates, or evidence of obstruction, uvula midline. Mucous membranes moist. Neck: Trachea midline, no thyromegaly or masses palpated, and no cervical lymphadenopathy. Supple, full range of motion without nuchal rigidity, or vertebral point tenderness. Chest/axilla: Normal chest wall appearance and motion. Nontender with no deformity. No lesions are appreciated. Cardiovascular: Regular rate and rhythm with a normal S1 and S2. No gallops, murmurs, or rubs. Normal PMI, no JVD. No pulse deficits. Respiratory: Lungs have equal breath sounds bilaterally, clear to auscultation and percussion. No rales, rhonchi or wheezes noted. No increased work of breathing, no retractions or nasal flaring. Abdomen/GI: Soft, non-tender, with normal bowel sounds. No distension or tympany. No guarding or rebound. No evidence of tenderness throughout. There is left perianal/left premium moderate to large size abscess, that has spontaneously drained on exam, via draining a large amount of bloody to purulent debris. Back: No spinal tenderness. No costovertebral tenderness. Male : Normal genitalia with no discharge or lesions. Digital rectal exam revealed no abscess communication with rectum Skin: Warm, dry with normal turgor. Normal color with no rashes, no lesions, and no evidence of cellulitis. MS/ Extremity: Pulses equal, no cyanosis. Neurovascular intact. Full, normal range of motion. Neuro: Awake and alert, GCS 15, oriented to person, place, time, and situation. Cranial nerves II-XII grossly intact. Motor strength 5/5 in all extremities. Sensory grossly intact. Psych: Awake, alert, with orientation to person, place and time. Behavior, mood, and affect are within normal limits 05/17 04:50 ECG was reviewed by the Attending Physician. There he is EKG at 0028 sinus tachycardia sp4 at a rate of 118 Vital Signs: 05/16 21:03 BP 130 / 93; Pulse 128; Resp 18; Temp 100.2; Pulse Ox 97% on R/A; Weight 165.56 kg; mb9 Height 5 ft. 7 in. ; 23:45 BP 152 / 96; Pulse 140; Resp 18 S; Pulse Ox 95% on R/A; as6 05/17 01:47 Pulse 101; Resp 15 S; Temp 98.5(O); Pulse Ox 96% on R/A; as6 05/16 21:03 Body Mass Index 57.17 (165.56 kg, 170.18 cm) mb9 Procedures: 05/16 23:27 I \T\ D: Incision and drainage was performed for an abscess of the left perianal area. sp4 gluteal cleft -close to perineum left side, some distance away from anal sphincter Prepped with Betadine, Anesthetized with 30 ml's 1% Lidocaine. Incised with #11 blade. Drained large amount purulent fluid. bloody fluid. Packed with iodoform gauze, Dressing: sterile 4x4 gauze, the patient tolerated the procedure well, Abscess basically spontaneously drained on arrival to the emergency room with large amount of purulent bloody debris. The remainder of the abscess was anesthetized with lidocaine and explored and suctioned out. And cavity of the abscess was packed. At digital rectal exam revealed no communication with rectum. No fissures or fistulas. Patient at this time is stable for discharge home with abscess care instructions. Will refer to Dr. Chan for repeat exam in 7-10 days. . MDM: 21:03 Patient medically screened. sp4 23:49 Differential diagnosis: abscess, allergic reaction, cellulitis, insect bite. Data sp4 reviewed: vital signs, nurses notes, old medical records, lab test result(s), finger stick glucose. Consideration of Admission/Observation Escalation of care including admission/observation considered. ED course: Abscess was drained and packed. Patient is stable for discharge home. Will advise follow-up with Dr. Chan in 7 to 10 days. Will advise abscess At home. Also Bactrim and Keflex p.o. for 10 days . 05/16 23:52 Order name: Glucose, Ancillary Testing; Complete Time: 00:02 EDMS 05/17 00:03 Order name: Basic Metabolic Panel; Complete Time: sp4 05/17 00:03 Order name: CBC with Diff; Complete Time: sp4 05/17 00:03 Order name: LFT's; Complete Time: : sp4 05/17 00:03 Order name: Magnesium; Complete Time: sp4 05/17 00:04 Order name: Blood Culture Adult (2) 4 05/17 00:04 Order name: CRP; Complete Time: 01: sp4 05/17 00:04 Order name: COVID-19/FLU A+B sp4 05/17 00:03 Order name: EKG; Complete Time: 00:04 4 05/16 21:02 Order name: Dressing - Wound; Complete Time: 23:42 sp4 05/16 21:02 Order name: Gloves, Sterile; Complete Time: 23:17 sp4 05/16 21:02 Order name: Setup Suture Tray; Complete Time: 23:17 sp4 05/16 21:03 Order name: Accucheck Blood Glucose; Complete Time: 23:42 sp4 05/16 23:26 Order name: Accucheck Blood Glucose; Complete Time: :42 sp4 05/17 00:03 Order name: Cardiac monitoring; Complete Time: 00:41 sp4 05/17 00:03 Order name: EKG - Nurse/Tech; Complete Time: 00: sp4 05/17 00:03 Order name: IV Saline Lock; Complete Time: 00: sp4 05/17 00:03 Order name: Labs collected and sent; Complete Time: 00: sp4 05/17 00:03 Order name: O2 Per Protocol; Complete Time: : sp4 05/17 00:03 Order name: O2 Sat Monitoring; Complete Time: :4 EC/28 04:50 Rate is 118 beats/min. Rhythm is regular, Sinus tachycardia. QRS [place] is Normal. MD sp4 interval is normal. QRS interval is normal. QT interval is normal. No Q waves. T waves are Normal. No ST changes noted. Clinical impression: No evidence of ischemia. Interpreted by me. Reviewed by me. Administered Medications: 05/16 23:15 Drug: Lidocaine Infiltration (1 %) 30 ml 20 ml Infiltration once; to bedside {Note: as6 administered by provider.} Volume: 20 ml; Route: Infiltration; 05/17 01:45 Follow up: Response: No adverse reaction as6 05/16 23:42 Drug: Trimethoprim-Sulfamethoxazole PO (160 mg-800 mg (DS) 1 tablet PO once Route: PO; as6 05/17 01:45 Follow up: Response: No adverse reaction as05/16 23:42 Drug: Cephalexin PO 500 mg PO once Route: PO; 05/17 01:45 Follow up: Response: No adverse reaction 05/16 23:42 Drug: HYDROcodone-acetaminophen PO 5 mg-325 mg 2 tabs PO once Route: PO; 05/17 01:45 Follow up: Response: No adverse reaction 05/16 23:42 Drug: Ibuprofen PO 800 mg PO once Route: PO; 05/17 01:46 Follow up: Response: No adverse reaction 05/16 23:42 Drug: Ondansetron PO 4 mg PO once Route: PO; 05/17 01:46 Follow up: Response: No adverse reaction 05/16 23:42 Drug: Promethazine PO 25 mg PO once Route: PO; 05/17 01:46 Follow up: Response: No adverse reaction 00:44 Drug: NS 0.9% IV 1000 ml IV at 1 bolus Per protocol; 1000 mL bolus Route: IV; Rate: 1 as6 bolus; Site: right antecubital; 01:44 Follow up: Response: No adverse reaction; IV Status: Completed infusion; IV Intake: as6 1000ml Point of Care Testing: Blood Glucose: 05/16 23:42 Blood Glucose: 230 mg/dL; as6 Ranges: Critical Glucose Levels:Adult <50 mg/dl or >400 mg/dl <40 mg/dl or >180 mg/dl Disposition Summary: 05/17/23 01:32 Discharge Ordered Notes: Location: Home sp4 Problem: new sp4 Symptoms: have improved sp4 Condition: Stable sp4 Diagnosis - Cutaneous abscess of buttock sp4 - Cutaneous abscess of perineum sp4 Followup: sp4 - With: Remi Chan MD - When: 7 - 10 days - Reason: Recheck today's complaints Discharge Instructions: - Discharge Summary Sheet sp4 - Incision and Drainage, Care After sp4 Forms: - Patient Portal Instructions sp4 Prescriptions: - Cephalexin 500 mg Oral Capsule - take 1 capsule ORAL route every 6 hours for 10 days; 40 capsule; Refills: 0, sp4 Product Selection Permitted - Ibuprofen 800 mg Oral Tablet - take 1 tablet ORAL route every 8 hours As needed take with food; 30 tablet; sp4 Refills: 0, Product Selection Permitted - Tramadol 50 mg Oral Tablet - take 1 tablet ORAL route every 8 hours as needed; 12 tablet; Refills: 0, sp4 Product Selection Permitted - Bactrim DS 800-160 mg Oral Tablet - take 1 tablet ORAL route every 12 hours for 10 days; 20 tablet; Refills: 0, sp4 Product Selection Permitted Signatures: Dispatcher [employer] Hardeep Simeon RN RN as6 Melanie Hebert RN RN mb9 Naldo Juan MD MD sp4
[2023-05-17 01:58] LABS: SARS-COV-2 RT PCR NEGATIVE (NEGATIVE)
[2023-05-17 02:15] VITALS: BP 152/96
[2023-05-17 02:20] VITALS: TEMP 98.5; O2SAT 96
--- NOTE | 2023-05-19 15:24 | EKG ---
Test Date: 2023-05-17 Test Time: 00:28:35 Help Desk Intern: CAMERON MEASUREMENT RESULTS: Intervals: Rate: 118 VT: 158 QRSD: 82 QT: 320 QTc: 448 [place]: P: 30 VT: 158 QRS: 67 T: 19 INTERPRETIVE STATEMENTS: Sinus tachycardia Otherwise normal ECG Compared to ECG 03/09/2021 14:04:44 Sinus rhythm no longer present Myocardial infarct finding no longer present Electronically Signed On 05-19-23 15:14:38 SPRAYING MACHINE OPERATOR by Bill Roche
== END 2023-05-17 01:48 | disposition home or self-care (01) ==
LOC: ER 20:32
PROC: 0H99XZZ Drainage of Perineum Skin, External Approach (ICD-10-PCS; principal; 2023-05-17)
DX: L02.31 Cutaneous abscess of buttock (principal); L02.215 Cutaneous abscess of perineum; Z11.52 Encounter for screening for COVID-19
CPT/HCPCS: 0240U; 36415; 80048; 80076; 82947; 83735; 85025; 86140; 87040; 93005; 96360; 99284; J2001; J7030; Q0162; Q0169

== ENCOUNTER 2024-04-10 20:05 | Emergency (ER) | payer SELFPAY ==
[2024-04-10] MEDS ORDERED: methocarbamoL 750 MG TAB ONE (21:46)
[2024-04-10] MEDS ORDERED: KETOROLAC 30 MG/ML INJ ONE (21:47)
[2024-04-10 22:39] LABS: Anion Gap 9.3 mEq/L (5.0-15.0); Potassium 4.3 mEq/L (3.5-5.1)
--- NOTE | 2024-04-10 23:27 | RAD REPORT ---
Clinical Indication: Bed Name: 13; LOWER BACK PAIN Comparison: None TECHNIQUE: Sequential trans-axial images were obtained with a multi-detector helical CT. Coronal and sagittal reconstructions were obtained. All CT scans at this location are performed using dose optimization techniques as appropriate to perf orm the study. Radiation dose reduction technique was utilized including one or more of the following: Automated exp osure control, adjustment of the mA and/or kV according to patient size and use of iterative reconstruction technique. CT Radiation Dose DLP 1832.4 mGy-cm FINDINGS: ALIGNMENT AND GENERAL ASSESSMENT: There are 5 nonrib-bearing lumbar vertebral segments. There is norm al alignment of the lumbar spine. The anterior and posterior paraspinal soft tissues are unremarkable. There are no fractures or subluxations of the lumbar spine. There are no pars interarticularis defect s and no spondylolisthesis. The facet joints are well aligned. DISK SPACES AND SOFT TISSUES: MRI has higher sensitivity and specificity for disc and soft tissue dis ease. T12-L1: The disk is unremarkable. The facet joints appear unremarkable. There is no central or forami nal stenosis. L1-L2: Mild symmetric posterior disc bulge is noted. The facet joints appear unremarkable. Mild bilat eral neural foramen narrowing is noted. There is mild spinal canal stenosis measuring 8.6 mm in AP dimension. L2-L3: Moderate symmetrical disc bulge is noted. The facet joints appear unremarkable. There is moder ate bilateral neural foramen narrowing. Spinal canal stenosis narrowing is noted measuring 9.2 mm in AP dimension. L3-L4: Moderate posterior disc bulge is noted with posterior disc osteophyte complex. Mild bilateral facet arthropathy is noted. Moderate bilateral neural foramen narrowing is noted. Spinal canal stenosis is noted measuring 7.1 mm in AP dimension.. L4-L5: Moderate posterior disc bulge is noted with disc osteophyte complex. Moderate bilateral facet arthropathy is noted. Severe bilateral neural foramen narrowing is noted, greater on the left. Spinal canal stenosis is noted measuring 6.3 mm in AP dimension.. L5-S1: Mild posterior disc bulge is noted. Mild facet arthropathy is noted. Mild to moderate bilatera l neural foramen narrowing is noted. Mild spinal canal stenosis is noted measuring 9.2 mm in AP dimension. If there is further concern, CT myelogram or MRI of the lumbar spine may be performed for complete as sessment. The liver is hypodense, consistent with fatty infiltration. The remaining visualized abdomen and retr operitoneum are unremarkable. IMPRESSION: 1. No acute bony abnormality of the lumbar spine. 2. Moderate to severe degenerative changes resulting in spinal canal stenosis and neural foramen narr owing as noted above. This is most severe at L4-L5 with the spinal canal measuring 6.3 mm in AP dimension. Electronically signed by: Steve Tompkins MD 04/10/2024 11:17 PM CDT RP Due to temporary technical issues with the PACS/[employer] reporting system, reports are being rolando d by the in-house radiologist without review as a courtesy to ensure prompt reporting the interpreting radiologist is fully responsible for the content of the report. Transcribed Date/Time: 04/10/2024 11:27 PM
--- NOTE | 2024-04-11 00:18 | EDPHYS ---
Physician Documentation [facility] Name: Robin Richardson Jr Age: 44 yrs Sex: Male : 1980 Arrival Date: 04/10/2024 Time: 20:05 Bed 13 Private MD: ED Physician Naldo Juan HPI: 04/10 20:18 This 44 yrs old Male presents to ER via Unassigned with complaints of Back sp4 Pain, Groin Pain, Leg Pain. 04/11 06:27 43-year-old male with history of perirectal abscess and diabetes presents with acute sp4 onset right lower back pain with radiation into the right buttock and into the right thigh. . 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 Historical: - Allergies: 04/10 20:28 No Known Allergies; cm10 - PMHx: 20:28 Perirectal abscess; Diabetes mellitus; cm10 - PSHx: 20:28 abscess; cm10 - Immunization history:: Adult Immunizations up to date. - Infectious Disease History:: Denies. - Social history:: Smoking status: Reported history of juuling and/or vaping. - Family history:: not pertinent. ROS: 04/11 06:27 Constitutional: Negative for fever, chills, and weight loss, positive today for right sp4 lower back pain, groin pain positive for right thigh pain All other systems are negative, Exam: 06:27 Constitutional: This is a well developed, well nourished patient who is awake, alert, sp4 and in no acute distress. Morbidly overweight male 06:27 Head/Face: Normocephalic, atraumatic. Eyes: Pupils equal round and reactive to light, sp4 extra-ocular motions intact. Lids and lashes normal. Conjunctiva and sclera are not injected. Cornea within normal limits. Periorbital areas with no swelling, redness, or edema. ENT: Nares patent. No nasal discharge, no septal abnormalities noted. Tympanic membranes are normal and external auditory canals are clear. Oropharynx with no redness, swelling, or masses, exudates, or evidence of obstruction, uvula midline. Mucous membranes moist. Neck: Trachea midline, no thyromegaly or masses palpated, and no cervical lymphadenopathy. Supple, full range of motion without nuchal rigidity, or vertebral point tenderness. Chest/axilla: Normal chest wall appearance and motion. Nontender with no deformity. No lesions are appreciated. Cardiovascular: Regular rate and rhythm with a normal S1 and S2. No gallops, murmurs, or rubs. Normal PMI, no JVD. No pulse deficits. Respiratory: Lungs have equal breath sounds bilaterally, clear to auscultation and percussion. No rales, rhonchi or wheezes noted. No increased work of breathing, no retractions or nasal flaring. Abdomen/GI: Soft, with normal bowel sounds. No distension or tympany. No guarding or rebound. No evidence of tenderness throughout. Back: No spinal tenderness. No costovertebral tenderness. Skin: Warm, dry with normal turgor. Normal color with no rashes, no lesions, and no evidence of cellulitis. MS/ Extremity: Pulses equal, no cyanosis. Neurovascular intact. Full, normal range of motion. Neuro: Awake and alert, GCS 15, oriented to person, place, time, and situation. Cranial nerves II-XII grossly intact. Motor strength 5/5 in all extremities. Sensory grossly intact. Psych: Awake, alert, with orientation to person, place and time. Behavior, mood, and affect are within normal limits Vital Signs: 04/10 20:26 BP 175 / 106; Pulse 95; Resp 16; Temp 97.4; Pulse Ox 99% on R/A; Weight 163.29 kg; cm10 Height 5 ft. 7 in. ; Pain 8/10; 21:50 BP 155 / 83; Pulse 88; Resp 17; Pulse Ox 99% on R/A; Pain 9/10; rg5 22:30 BP 129 / 76; Pulse 78; Resp 17; Pulse Ox 99% on R/A; Pain 5/10; rg5 23:46 BP 130 / 79; Pulse 78; Resp 17; Pulse Ox 99% on R/A; Pain 5/10; rg5 20:26 Body Mass Index 56.38 (163.29 kg, 170.18 cm) cm10 20:26 Pain Scale: Adult cm10 21:50 Pain Scale: Adult rg5 22:30 Pain Scale: Adult rg5 23:46 Pain Scale: Adult rg5 Artis Coma Score: 04/11 06:27 Eye Response: spontaneous(4). Motor Response: obeys commands(6). Verbal Response: sp4 oriented(5). Total: 15. MDM: 04/10 20:18 Medical Screening Exam initiated sp4 04/11 06:30 Differential diagnosis: arthritis, Fatigue Fracture Obesity Osteoporosis Scoliosis. sp4 Data reviewed: vital signs, nurses notes. Data reviewed: lab test result(s), electrolytes, radiologic studies, CT scan. ED course: Clinical Indication: Bed Name: 13; LOWER BACK PAIN Comparison: None TECHNIQUE: Sequential trans-axial images were obtained with a multi-detector helical CT. Coronal and sagittal reconstructions were obtained. All CT scans at this location are performed using dose optimization techniques as appropriate to perform the study. Radiation dose reduction technique was utilized including one or more of the following: Automated exposure control, adjustment of the mA and/or kV according to patient size and use of iterative reconstruction technique. CT Radiation Dose DLP 1832.4 mGy-cm FINDINGS: ALIGNMENTAND GENERAL ASSESSMENT: There are 5 nonrib-bearing lumbar vertebral segments. There is normal alignment of the lumbar spine. The anterior and posterior paraspinal soft tissues are unremarkable. There are no fractures or subluxations of the lumbar spine. There are no pars interarticularis defects and no spondylolisthesis. The facet joints are well aligned. DISK SPACES AND SOFT TISSUES: MRI has higher sensitivity and specificity for disc and soft tissue disease. T12-L1: The disk is unremarkable. The facet joints appear unremarkable. There is no central or foraminal stenosis. L1-L2: Mild symmetric posterior disc bulge is noted. The facet joints appear unremarkable. Mild bilateral neural foramen narrowing is noted. There is mild spinal canal stenosis measuring 8.6 mm inAP dimension. L2-L3: Moderate symmetrical disc bulge is noted. The facet joints appear unremarkable. There is moderate bilateral neural foramen narrowing. Spinal canal stenosis narrowing is noted measuring 9.2 mm inAP dimension. L3-L4: Moderate posterior disc bulge is noted with posterior disc osteophyte complex. Mild bilateral facet arthropathy is noted. Moderate bilateral neural foramen narrowing is noted. Spinal canal stenosis is noted measuring 7.1 mm inAP dimension.. L4-L5: Moderate posterior disc bulge is noted with disc osteophyte complex. Moderate bilateral facet arthropathy is noted. Severe bilateral neural foramen narrowing is noted, greater on the left. Spinal canal stenosis is noted measuring 6.3 mm inAP dimension.. L5-S1: Mild posterior disc bulge is noted. Mild facet arthropathy is noted. Mild to moderate bilateral neural foramen narrowing is noted. Mild spinal canal stenosis is noted measuring 9.2 mm inAP dimension. If there is further concern, CT myelogram or MRI of the lumbar spine may be performed for complete assessment. The liver is hypodense, consistent with fatty infiltration. The remaining visualized abdomen and retroperitoneum are unremarkable. IMPRESSION: 1. No acute bony abnormality of the lumbar spine. 2. Moderate to severe degenerative changes resulting in spinal canal stenosis and neural foramen narrowing as noted above. This is most severe at L4-L5 with the spinal canal measuring 6.3 mm inAP dimension. . ED course: Patient has significant spinal stenosis at L4-L5 level. Moderate to severe degenerative changes in the spinal canal with neuroforaminal narrowings. This would explain the nature of the back pain. Patient advised to see primary care physician for outpatient spinal MRI. . 04/10 20:34 Order name: BMP; Complete Time: 23:15 sp4 04/10 22:33 Order name: CT Lumbar Spine Wo Con; Complete Time: 23:55 sp4 Administered Medications: 04/10 21:54 Drug: Ketorolac IM 60 mg IM once Route: IM; Site: right gluteus; rg5 22:42 Follow up: Response: No adverse reaction; Pain is decreased rg5 21:54 Drug: Methocarbamol PO 1500 mg PO once Route: PO; rg5 22:42 Follow up: Response: No adverse reaction; Pain is decreased rg5 Disposition Summary: 04/11/24 00:18 Discharge Ordered Notes: We recommend outpatient MRI of the L spine Location: Home sp4 Problem: new sp4 Symptoms: have improved sp4 Condition: Stable sp4 Diagnosis - Spinal Stenosis , Degenerative Spinal Arthritis sp4 - Acute right lower back pain, sp4 Followup: sp4 - With: Private Physician - When: 7 - 10 days - Reason: Recheck today's complaints Discharge Instructions: - Discharge Summary Sheet sp4 - Spinal Stenosis, [id number] sp4 Forms: - Patient Portal Instructions sp4 Prescriptions: - tramadol 100 mg Oral tablet - take 1 tablet ORAL route every 8 hours PRN back pain; 25 tablet; Refills: 0, sp4 Product Selection Permitted - Ibuprofen 800 mg Oral Tablet - take 1 tablet ORAL route every 8 hours As needed take with food; 30 tablet; sp4 Refills: 0, Product Selection Permitted - methocarbamol 750 mg Oral tablet - take 2 tablets ORAL route every 8 hours for 2 days PRN back pain; 60 tablet; sp4 Refills: 0, Product Selection Permitted Signatures: Dispatcher [employer] EDNaldo Doherty MD MD sp4 Andie Chan RN RN cm10 Enoc Echols RN RN rg5 Corrections: (The following items were deleted from the chart) 22:34 22:34 Spine Lumbar Wo [id number] ordered. EDMS EDMS
--- NOTE | 2024-04-11 00:18 | ER ---
Nurse's Notes [facility] Name: Robin Richardson Jr Age: 44 yrs Sex: Male : 1980 Arrival Date: 04/10/2024 Time: 20:05 Bed 13 Private MD: Diagnosis: Spinal Stenosis , Degenerative Spinal Arthritis ;Acute right lower back pain, Presentation: 04/10 20:26 Chief complaint: Patient states: Right sided low back pain that radiates down right leg cm10 onset tuesday. Coronavirus screen: Client denies travel out of the [place] in the last 14 days. Ebola Screen: Patient denies travel to an Ebola-affected area in the 21 days before illness onset. No symptoms or risks identified at this time. Initial Sepsis Screen: Does the patient meet any 2 criteria? HR > 90 bpm. Does the patient have a suspected source of infection? No. Patient's initial sepsis screen is negative. Risk Assessment: Do you want to hurt yourself or someone else? Patient reports no desire to harm self or others. Onset of symptoms was April 07, 2024. 20:26 Method Of Arrival: Ambulatory cm10 20:26 Acuity: MYRNA 4 cm10 Triage Assessment: 20:28 General: Appears in no apparent distress. uncomfortable, Behavior is calm, cooperative. cm10 Neuro: No deficits noted. Level of Consciousness is awake, alert, obeys commands, Oriented to person, place, time, situation, Appropriate for age. Historical: - Allergies: 20:28 No Known Allergies; cm10 - PMHx: 20:28 Perirectal abscess; Diabetes mellitus; cm10 - PSHx: 20:28 abscess; cm10 - Immunization history:: Adult Immunizations up to date. - Infectious Disease History:: Denies. - Social history:: Smoking status: Reported history of juuling and/or vaping. - Family history:: not pertinent. Screenin:07 [facility] ED Fall Risk Assessment (Adult) History of falling in the last 3 months, rg5 including since admission No falls in past 3 months (0 pts) Confusion or Disorientation No (0 pts) Intoxicated or Sedated No (0 pts) Impaired Gait No (0 pts) Mobility Assist Device Used Yes (1 pt) Altered Elimination No (0 pt) Score/Fall Risk Level 0 - 2 = Low Risk Oriented to surroundings, Maintained a safe environment, Hourly rounding (assess needs \T\ fall precautionary measures) done. Abuse screen: Denies threats or abuse. Nutritional screening: No deficits noted. Tuberculosis screening: No symptoms or risk factors identified. Assessment: 21:50 General: Appears comfortable, Behavior is calm, cooperative. Pain: Complains of pain in rg5 right lower back Pain radiates to right leg Pain currently is 8 out of 10 on a pain scale. Quality of pain is described as aching. Neuro: Level of Consciousness is awake, alert, Oriented to person, place. 21:50 Cardiovascular: Capillary refill < 3 seconds Patient's skin is warm and dry. rg5 Respiratory: Airway is patent Trachea midline Respiratory effort is even, unlabored, Respiratory pattern is regular, symmetrical. GI: Abdomen is round non-distended, Bowel sounds present X 4 quads. : No signs and/or symptoms were reported regarding the genitourinary system. EENT: No deficits noted. Derm: Derm: Skin is intact, Skin is dry, Skin is normal. Musculoskeletal: Circulation, motion, and sensation intact. Range of motion: intact in all extremities. 22:43 Reassessment: Patient and/or family updated on plan of care and expected duration. Pain rg5 level reassessed. Patient is alert, oriented x 3, equal unlabored respirations, skin warm/dry/pink. Patient states symptoms have improved. 23:48 Reassessment: Patient and/or family updated on plan of care and expected duration. Pain rg5 level reassessed. Patient is alert, oriented x 3, equal unlabored respirations, skin warm/dry/pink. 04/11 00:15 Reassessment: Patient and/or family updated on plan of care and expected duration. Pain rg5 level reassessed. Patient states symptoms have improved. Vital Signs: 04/10 20:26 BP 175 / 106; Pulse 95; Resp 16; Temp 97.4; Pulse Ox 99% on R/A; Weight 163.29 kg; cm10 Height 5 ft. 7 in. ; Pain 8/10; 21:50 BP 155 / 83; Pulse 88; Resp 17; Pulse Ox 99% on R/A; Pain 9/10; rg5 22:30 BP 129 / 76; Pulse 78; Resp 17; Pulse Ox 99% on R/A; Pain 5/10; rg5 23:46 BP 130 / 79; Pulse 78; Resp 17; Pulse Ox 99% on R/A; Pain 5/10; rg5 20:26 Body Mass Index 56.38 (163.29 kg, 170.18 cm) cm10 20:26 Pain Scale: Adult cm10 21:50 Pain Scale: Adult rg5 22:30 Pain Scale: Adult rg5 23:46 Pain Scale: Adult rg5 [place] Coma Score: 04/11 06:27 Eye Response: spontaneous(4). Motor Response: obeys commands(6). Verbal Response: sp4 oriented(5). Total: 15. ED Course: 04/10 20:16 Patient arrived in ED. gm2 20:18 Naldo Juan MD is Attending Physician. sp4 20:28 Triage completed. cm10 20:28 Arm band placed on right wrist. Patient placed in waiting room. cm10 21:41 Enoc Echols, RN is Primary Nurse. rg5 22:07 Patient has correct armband on for positive identification. rg5 22:07 No provider procedures requiring assistance completed. Patient did not have IV access rg5 during this emergency room visit. 22:20 Initial lab(s) drawn, by me, sent to lab. oe 22:58 CT Lumbar Spine Wo Con In Process Unspecified. EDMS 04/11 00:29 Provided Education on: POST ER CARE. rg5 Administered Medications: 04/10 21:54 Drug: Ketorolac IM 60 mg IM once Route: IM; Site: right gluteus; rg5 22:42 Follow up: Response: No adverse reaction; Pain is decreased rg5 21:54 Drug: Methocarbamol PO 1500 mg PO once Route: PO; rg5 22:42 Follow up: Response: No adverse reaction; Pain is decreased rg5 Medication: 22:07 VIS not applicable for this client. rg5 Outcome: 04/11 00:18 Discharge ordered by . sp4 00:30 Discharged to home ambulatory, rg5 00:30 Condition: stable 00:30 Discharge instructions given to patient, Instructed on discharge instructions, follow up and referral plans. Demonstrated understanding of instructions, follow-up care, medications, Prescriptions given X 3, 00:31 Patient left the ED. rg5 Signatures: Dispatcher [employer] EDFL Tito Vitale Sergey, MD MD sp4 Andie Chan RN RN cm10 Nicole Garza gm2 Enoc Echols RN RN rg5 Corrections: (The following items were deleted from the chart) 04/10 20:29 20:26 BP 175 / 106; Pulse 95bpm; Resp 16bpm; Pulse Ox 99% RA; Temp 97.4F; cm10 cm10
[2024-04-11 08:33] VITALS: TEMP 97.4; O2SAT 99
[2024-04-11 08:37] VITALS: BP 130/79
== END 2024-04-11 00:31 | disposition home or self-care (01) ==
LOC: ER 20:05
DX: M48.00 Spinal stenosis, site unspecified (principal); M47.9 Spondylosis, unspecified
CPT/HCPCS: 36415; 72131; 80048

== ENCOUNTER 2024-05-25 09:02 | Emergency (ER) | payer SELFPAY ==
[2024-05-25] MEDS ORDERED: NA CHLORIDE 0.9% 1,000 ML ONE ×2 (09:34→11:07)
[2024-05-25] MEDS ORDERED: AMOX/K CLAV 875 MG TAB ONE (09:34)
[2024-05-25] MEDS ORDERED: NA CHLORIDE 0.9% 100 ML ONE (09:34)
[2024-05-25] MEDS ORDERED: CEFTRIAXONE 1000 MG/VIAL ONE (09:34)
[2024-05-25 09:46] LABS: Absolute Basophils 0.1 K/uL (0-0.5); Absolute Eosinophils 0.3 K/uL (0-0.5); Absolute Lymphocytes (CBC) 2.2 K/uL (0.7-4.9); Absolute Monocytes 0.6 K/uL (0.1-1.3); Absolute Neutrophil 8.5 K/uL (1.8-8.0); Eosinophils % 2.9 % (0-4.4); Hematocrit 45.1 % (39.6-49.0); Hemoglobin 15.2 g/dL (13.6-17.9); Lymphocytes % 19.1 % (15.3-44.8); MCH 30.5 pg (27.0-35.0); MCHC 33.6 g/dL (32.0-36.0); MCV 90.7 fL (80-100); MPV 6.6 fL (7.6-11.3); Monocytes % 4.7 % (3.3-12.3); Neutrophils % 72.3 % (41.7-73.7); Nucleated Red Blood Cells % 0.1 % (0-0); Platelets 330 thou/uL (152-406); RBC Red Blood Cell Count 4.97 M/uL (4.33-5.43)
[2024-05-25 10:49] LABS: Albumin 3.1 g/dL (3.4-5.0); Albumin/Globulin Ratio 0.7 (1.1-1.8); Anion Gap 10.9 mEq/L (5.0-15.0); Bilirubin Total 0.5 mg/dL (0.2-1.0); Globulin 4.5 g/dL (2.3-3.5); Potassium 3.9 mEq/L (3.5-5.1); Protein, Total 7.6 g/dL (6.4-8.2)
[2024-05-25] MEDS ORDERED: INSULIN GLARGINE 100 UNIT/ML SQ ONE (11:06)
[2024-05-25] MEDS ORDERED: INSULIN REGULAR (HUMAN) 100 UNIT/ML ONE (11:07)
--- NOTE | 2024-05-25 12:22 | RAD REPORT ---
EXAM: CT Soft Tissue Neck Wo Contr INDICATION: RUST MAIN FACIAL PAIN Bed Name: 16 TECHNIQUE: Helical CT examination of the neck without IV contrast. Sagittal and coronal reformations were generated. This exam was performed according to our departmental dose-optimization program, which includes automated exposure control, adjustment of the mA and/or kV according to patient size a nd/or use of iterative reconstruction technique. COMPARISON: None. FINDINGS: Mucosal spaces: Nasopharynx, oropharynx, oral cavity, larynx and hypopharynx are normal. No suspiciou s masses. Epiglottis is normal in configuration. True vocal cords cords are normally situated. Piriform sinuses are well-aerated. Lymph Nodes: No pathologic appearing cervical lymph nodes. Salivary Glands: Asymmetric swelling and overlying fat stranding involving the left parotid superfici al lobe. No radiopaque calculi are observed. Mild overlying platysma thickening. Thyroid Gland: Normal Included Intracranial Structures: Normal Included Orbits: Normal Paranasal Sinuses: Predominantly clear Tympanomastoid Cavities: Normal Vascular Structures: Normal Osseous Structures: No acute osseous abnormality. Included Lung Apices: Normal IMPRESSION: Asymmetric swelling and overlying fat stranding along the left superficial parotid lobe, findings walters se concern for acute infectious or inflammatory parotitis, although evaluation is somewhat limited by lack of IV contrast.
--- NOTE | 2024-05-25 12:37 | EDPHYS ---
Physician Documentation [facility] Name: Robin Richardson Jr Age: 44 yrs Sex: Male : 1980 Arrival Date: 05/25/2024 Time: 09:02 Bed 16 Private MD: ED Physician Lincoln Emdonds HPI: 05/25 10:14 This 44 yrs old Male presents to ER via Ambulatory with complaints of Facial kamala Swelling. 10:14 The patient or guardian reports pain, swelling, tenderness. The complaints affect the kamala left ear and left jaw. Context of injury: The problem was sustained at an unknown location. Onset: The symptoms/episode began/occurred just prior to arrival, this morning. Associated signs and symptoms: The patient has no apparent associated signs or symptoms. Severity of symptoms: At their worst the symptoms were moderate, in the emergency department the symptoms are unchanged. Historical: - Allergies: 09:11 No Known Allergies; ss - PMHx: 09:11 diabetes mellitus; Perirectal abscess; ss - PSHx: 09:11 abscess; ss - Immunization history:: Adult Immunizations. - Infectious Disease History:: Denies. - Social history:: Smoking status: Patient reports use of chewing tobacco. - Family history:: not pertinent. ROS: 10:14 Constitutional: Negative for fever, chills, and weight loss, Eyes: Negative for injury, kamala pain, redness, and discharge, ENT: Negative for injury, pain, and discharge, Neck: Negative for injury, pain, and swelling, Cardiovascular: Negative for chest pain, palpitations, and edema, Respiratory: Negative for shortness of breath, cough, wheezing, and pleuritic chest pain, Abdomen/GI: Negative for abdominal pain, nausea, vomiting, diarrhea, and constipation, Back: Negative for injury and pain, : Negative for injury, bleeding, discharge, and swelling, MS/Extremity: Negative for injury and deformity, Neuro: Negative for headache, weakness, numbness, tingling, and seizure, Psych: Negative for depression, anxiety, suicide ideation, homicidal ideation, and hallucinations, Allergy/Immunology: Negative for hives, rash, and allergies, Endocrine: Negative for neck swelling, polydipsia, polyuria, polyphagia, and marked weight changes, Hematologic/Lymphatic: Negative for swollen nodes, abnormal bleeding, and unusual bruising, 10:14 Skin: Positive for swelling, of the left ear and left jaw, Exam: 10:15 Constitutional: This is a well developed, well nourished patient who is awake, alert, kamala and in no acute distress. Head/Face: Normocephalic, atraumatic. Eyes: Pupils equal round and reactive to light, extra-ocular motions intact. Lids and lashes normal. Conjunctiva and sclera are non-icteric and not injected. Cornea within normal limits. Periorbital areas with no swelling, redness, or edema. Neck: Trachea midline, no thyromegaly or masses palpated, and no cervical lymphadenopathy. Supple, full range of motion without nuchal rigidity, or vertebral point tenderness. No Meningismus. Chest/axilla: Normal chest wall appearance and motion. Nontender with no deformity. No lesions are appreciated. Cardiovascular: Regular rate and rhythm with a normal S1 and S2. No gallops, murmurs, or rubs. Normal PMI, no JVD. No pulse deficits. Respiratory: Lungs have equal breath sounds bilaterally, clear to auscultation and percussion. No rales, rhonchi or wheezes noted. No increased work of breathing, no retractions or nasal flaring. Abdomen/GI: Soft, non-tender, with normal bowel sounds. No distension or tympany. No guarding or rebound. No evidence of tenderness throughout. Back: No spinal tenderness. No costovertebral tenderness. Full range of motion. Male : Normal genitalia with no discharge or lesions. Skin: Warm, dry with normal turgor. Normal color with no rashes, no lesions, and no evidence of cellulitis. MS/ Extremity: Pulses equal, no cyanosis. Neurovascular intact. Full, normal range of motion., bilateral aka Neuro: Awake and alert, GCS 15, oriented to person, place, time, and situation. Cranial nerves II-XII grossly intact. Motor strength 5/5 in all extremities. Sensory grossly intact. Cerebellar exam normal. Normal gait. Psych: Awake, alert, with orientation to person, place and time. Behavior, mood, and affect are within normal limits. 10:15 Head/face: Noted is swelling, tenderness, that is moderate, of the left ear, left jaw, left zygomatic area and left cheek, 10:15 ENT: Mouth: is normal, no acute changes, Posterior pharynx: is normal, no acute changes, Vital Signs: 09:10 BP 175 / 115; Pulse 106; Resp 17; Temp 98; Pulse Ox 98% on R/A; Weight 163.29 kg; ss Height 5 ft. 7 in. ; Pain 0/10; 10:38 BP 166 / 94; Pulse 88; Resp 17; Pulse Ox 99% on R/A; rs5 12:50 BP 155 / 88; Pulse 77; Resp 17; Pulse Ox 98% on R/A; rs5 09:10 Body Mass Index 56.38 (163.29 kg, 170.18 cm) ss 09:10 Pain Scale: Adult ss [place] Coma Score: 10:16 Eye Response: spontaneous(4). Motor Response: obeys commands(6). Verbal Response: kamala oriented(5). Total: 15. MDM: 09:06 Medical Screening Exam initiated kamala 10:16 Differential diagnosis: Contusion of Hematoma on dental caries, dental abscess, kamala gingivostomatitis. Data reviewed: vital signs, nurses notes, lab test result(s), radiologic studies, CT scan. Consideration of Admission/Observation Escalation of care including admission/observation considered. I considered the following discharge prescriptions or medication management in the emergency department Medications were administered in the Emergency Department. See MAR. Independent interpretation of the following test(s) in the Emergency Department CT Scan: My interpretation is ct soft neck. Test considered but Not performed: Ultrasound no us head and neck. Historians other than the Patient: pt well informed. Care significantly affected by the following chronic conditions: Diabetes, Hypertension, Obesity. Counseling: I had a detailed discussion with the patient and/or guardian regarding the historical points, exam findings, and any diagnostic results supporting the discharge/admit diagnosis, lab results, radiology results, the need for outpatient follow up, for definitive care, an ENT specialist, a family practitioner. 05/25 09:19 Order name: CBC with Diff; Complete Time: 10:12 kamala 05/25 09:19 Order name: Comprehensive Metabolic Panel; Complete Time: 10:55 kamala 05/25 11:27 Order name: Soft Tissue Neck Wo Contr; Complete Time: 12:35 EDMS Administered Medications: 09:42 Drug: Rocephin IV 1 grams IV at per protocol once; Given slow IV push per pharmacy bp instructions Route: IV; Rate: per protocol; Site: left antecubital; 10:00 Follow up: Response: No adverse reaction rs5 09:42 Drug: Amoxicillin-Clavulanate PO 875 mg PO once Route: PO; bp 11:01 Follow up: Response: No adverse reaction rs5 09:43 Drug: NS 0.9% IV 1000 ml IV at 1000 ml once; to be given as a bolus over 60 minutes bp Route: IV; Rate: 1000 ml; Site: left antecubital; 10:55 Follow up: Response: No adverse reaction; IV Status: Completed infusion; IV Intake: rs5 999ml 11:10 Drug: NS 0.9% IV 1000 ml IV at 1000 ml once; to be given as a bolus over 60 minutes rs5 Route: IV; Rate: 1000 ml; Site: left antecubital; 12:01 Follow up: Response: No adverse reaction; IV Status: Completed infusion; IV Intake: rs5 1000ml 11:10 Drug: Insulin Regular Human IVP 10 units IVP once {Co-Signature: iw (Lyla Pruett rs5 RN).} Route: IVP; Site: left antecubital; 11:34 Follow up: Response: No adverse reaction rs5 11:10 Drug: Insulin Glargine Sub-Q 30 units Sub-Q once {Co-Signature: iw (Lyla Pruett5 RN).} Route: Sub-Q; Site: left lower abdomen; 11:40 Follow up: Response: No adverse reaction; Blood sugar is lowered rs5 Disposition Summary: 05/25/24 12:36 Discharge Ordered Notes: Location: Home kamala Problem: new kamala Symptoms: have improved kamala Condition: Stable kamala Diagnosis - Type 2 diabetes mellitus with hyperglycemia kamala - Disease of salivary gland, unspecified - Parotitis kamala - Obesity, unspecified kamala Followup: kamala - With: Private Physician - When: 2 - 3 days - Reason: Recheck today's complaints, Continuance of care, Re-evaluation by your physician Followup: kamala - With: Zakia Wade MD - When: 2 - 3 days - Reason: Recheck today's complaints, Re-evaluation by your physician Discharge Instructions: - Discharge Summary Sheet kamala - Hyperglycemia kamala - Parotitis kamala - Diabetes Mellitus and Nutrition, Adult kamala - Parotitis, Vccc-[id number] kamala - Hyperglycemia, [id number] kamala - Obesity, Adult, [id number] kamala Forms: - Medication Reconciliation Form kamala - Antibiotic Education kamala - Prescription Opioid Use kamala - Patient Portal Instructions [facility] - Leadership Thank You Letter [facility] Prescriptions: - Augmentin 875-125 mg Oral Tablet - take 1 tablet ORAL route every 12 hours for 10 days; 20 tablet; Refills: 0, [facility] Product Selection Permitted - Ibuprofen 600 mg Oral tablet - take 1 tablet ORAL route every 6 hours As needed take with food; 20 tablet; [facility] Refills: 0, Product Selection Permitted Signatures: Dispatcher [employer] EDMS Lincoln Edmonds MD MD cha Blanchard, Shelby, RN RN ss Agapito Kumar RN RN bp Kev Garcia RN RN rs5 Lyla Pruett RN iw Corrections: (The following items were deleted from the chart) 11:27 09:19 Soft Tissue Neck W/Contr+CT.RAD.BRZ ordered. [facility] EDNH
--- NOTE | 2024-05-25 12:37 | ER ---
Nurse's Notes [facility] Name: Robin Richardson Jr Age: 44 yrs Sex: Male : 1980 Arrival Date: 05/25/2024 Time: 09:02 Bed 16 Private MD: Diagnosis: Type 2 diabetes mellitus with hyperglycemia;Disease of salivary gland, unspecified-Parotitis;Obesity, unspecified Presentation: 05/25 09:10 Chief complaint: Patient states: L sided facial swelling that began suddenly after ss eating breakfast. Pt reports it felt like pressure, but it's already starting to improve. Coronavirus screen: Client denies travel out of the [place] in the last 14 days. Ebola Screen: Patient denies exposure to infectious person. Patient denies travel to an Ebola-affected area in the 21 days before illness onset. Initial Sepsis Screen: Does the patient meet any 2 criteria? No. Patient's initial sepsis screen is negative. Does the patient have a suspected source of infection? No. Patient's initial sepsis screen is negative. Risk Assessment: Do you want to hurt yourself or someone else? Patient reports no desire to harm self or others. Onset of symptoms was May 25, 2024. 09:10 Method Of Arrival: Ambulatory ss 09:10 Acuity: MYRNA 3 ss Historical: - Allergies: 09:11 No Known Allergies; ss - PMHx: 09:11 diabetes mellitus; Perirectal abscess; ss - PSHx: 09:11 abscess; ss - Immunization history:: Adult Immunizations. - Infectious Disease History:: Denies. - Social history:: Smoking status: Patient reports use of chewing tobacco. - Family history:: not pertinent. Screenin:07 [facility] ED Fall Risk Assessment (Adult) History of falling in the last 3 months, rs5 including since admission No falls in past 3 months (0 pts) Confusion or Disorientation No (0 pts) Intoxicated or Sedated No (0 pts) Impaired Gait No (0 pts) Mobility Assist Device Used No (0 pt) Altered Elimination No (0 pt) Score/Fall Risk Level 0 - 2 = Low Risk Oriented to surroundings, Maintained a safe environment. Abuse screen: Denies threats or abuse. Nutritional screening: No deficits noted. Tuberculosis screening: No symptoms or risk factors identified. Assessment: 09:07 General: Appears in no apparent distress. uncomfortable, Behavior is calm, cooperative. rs5 Pain: Complains of pain in left side of face Pain currently is 4 out of 10 on a pain scale. Quality of pain is described as aching, Is continuous. Neuro: Level of Consciousness is awake, alert, obeys commands, Oriented to person, place, time, situation. Cardiovascular: Patient's skin is warm and dry. Respiratory: Airway is patent Respiratory effort is even, unlabored, Respiratory pattern is regular, symmetrical. GI: Abdomen is round non-distended, Abd is soft and non tender X 4 quads. : No signs and/or symptoms were reported regarding the genitourinary system. EENT: No signs and/or symptoms were reported regarding the EENT system. Derm: Skin is intact, Skin is pink, warm \T\ dry. Musculoskeletal: Range of motion: intact in all extremities. 09:07 Derm: redness and swelling noted to left side of face. rs5 10:02 Reassessment: Patient and/or family updated on plan of care and expected duration. Pain rs5 level reassessed. Patient is alert, oriented x 3, equal unlabored respirations, skin warm/dry/pink. 10:49 Reassessment: Patient and/or family updated on plan of care and expected duration. Pain rs5 level reassessed. Patient is alert, oriented x 3, equal unlabored respirations, skin warm/dry/pink. 12:01 Reassessment: Patient and/or family updated on plan of care and expected duration. Pain rs5 level reassessed. Patient is alert, oriented x 3, equal unlabored respirations, skin warm/dry/pink. 12:50 Reassessment: Patient and/or family updated on plan of care and expected duration. Pain rs5 level reassessed. Patient is alert, oriented x 3, equal unlabored respirations, skin warm/dry/pink. Vital Signs: 09:10 BP 175 / 115; Pulse 106; Resp 17; Temp 98; Pulse Ox 98% on R/A; Weight 163.29 kg; ss Height 5 ft. 7 in. ; Pain 0/10; 10:38 BP 166 / 94; Pulse 88; Resp 17; Pulse Ox 99% on R/A; rs5 12:50 BP 155 / 88; Pulse 77; Resp 17; Pulse Ox 98% on R/A; rs5 09:10 Body Mass Index 56.38 (163.29 kg, 170.18 cm) ss 09:10 Pain Scale: Adult ss [place] Coma Score: 10:16 Eye Response: spontaneous(4). Motor Response: obeys commands(6). Verbal Response: kamala oriented(5). Total: 15. ED Course: 09:05 Patient arrived in ED. mg5 09:06 Lincoln Edmonds MD is Attending Physician. kamala 09:07 Patient has correct armband on for positive identification. Placed in gown. Bed in low rs5 position. Call light in reach. Side rails up X2. 09:07 No provider procedures requiring assistance completed. rs5 09:11 Triage completed. ss 09:11 Arm band placed on left wrist. ss 09:12 Inserted saline lock: 22 gauge in left antecubital area, using aseptic technique. Blood rs5 collected. Flushed with 10 mL NS. 09:32 Kev Garcia RN is Primary Nurse. rs5 11:31 Soft Tissue Neck Wo Contr In Process Unspecified. EDMS 12:36 Zakia Wade MD is Referral Physician. [facility] 13:00 Provided Education on: discharge instructions . rs5 13:00 IV discontinued, intact, bleeding controlled, No redness/swelling at site. Pressure rs5 dressing applied. Administered Medications: 09:42 Drug: Rocephin IV 1 grams IV at per protocol once; Given slow IV push per pharmacy bp instructions Route: IV; Rate: per protocol; Site: left antecubital; 10:00 Follow up: Response: No adverse reaction rs5 09:42 Drug: Amoxicillin-Clavulanate PO 875 mg PO once Route: PO; bp 11:01 Follow up: Response: No adverse reaction rs5 09:43 Drug: NS 0.9% IV 1000 ml IV at 1000 ml once; to be given as a bolus over 60 minutes bp Route: IV; Rate: 1000 ml; Site: left antecubital; 10:55 Follow up: Response: No adverse reaction; IV Status: Completed infusion; IV Intake: rs5 999ml 11:10 Drug: NS 0.9% IV 1000 ml IV at 1000 ml once; to be given as a bolus over 60 minutes rs5 Route: IV; Rate: 1000 ml; Site: left antecubital; 12:01 Follow up: Response: No adverse reaction; IV Status: Completed infusion; IV Intake: rs5 1000ml 11:10 Drug: Insulin Regular Human IVP 10 units IVP once {Co-Signature: iw (Lyla Pruett RN).} Route: IVP; Site: left antecubital; 11:34 Follow up: Response: No adverse reaction rs5 11:10 Drug: Insulin Glargine Sub-Q 30 units Sub-Q once {Co-Signature: iw (Lyla Pruett RN).} Route: Sub-Q; Site: left lower abdomen; 11:40 Follow up: Response: No adverse reaction; Blood sugar is lowered rs5 Medication: 10:01 VIS not applicable for this client. rs5 Intake: 10:55 IV: 999ml; Total: 999ml. rs5 12:01 IV: 1000ml; Total: 1999ml. rs5 Outcome: 12:36 Discharge ordered by . kamala 13:00 Discharged to home ambulatory, rs5 13:00 Condition: stable rs5 13:00 Discharge instructions given to patient, family, Instructed on discharge instructions, follow up and referral plans. Demonstrated understanding of instructions, follow-up care, medications, Prescriptions given X 2, 13:03 Patient left the ED. rs5 Signatures: Dispatcher [employer] EDMS Lincoln Edmonds MD MD cha Blanchard, Shelby, RN RN Agapito Larios RN RN bp Sotelo, Ricky, RN RN rs5 Lyndsey Gruber mg5 Lyla Pruett RN iw
[2024-05-25 13:50] VITALS: TEMP 98
[2024-05-25 13:51] VITALS: BP 166/94; O2SAT 99
== END 2024-05-25 13:03 | disposition home or self-care (01) ==
LOC: ER 09:02
DX: K11.20 Sialoadenitis, unspecified (principal); E11.65 Type 2 diabetes mellitus with hyperglycemia; E66.9 Obesity, unspecified
CPT/HCPCS: 36415; 70490; 80053; 82947; 85025; 96361; 96372; 96374; 96375; 99284; J0696; J7030